=== PATIENT | female | born 1940 | race Caucasian/White ===

== ENCOUNTER → 2016-05-15 | Outpatient (CLI) | payer BC ==
[~2016-05-15] MED LIST: ASPI81TA21 PO; ATOR-22 PO; BUPR-79 PO; CHOL100010 PO; CYAN10005 PO; FERR325T5 PO; GDN80 PO; HYDR25TA5 PO; HYDR500C3 PO; IMD/2 PO; LISI40TA PO; LVNIS40 SQ; METO50TA16 PO; MISCCAP80 PO; MULT-506 PO; OLAN-111 PO; OXYC5TAB PO; ULT50X PO; [UNRECOGNIZED DRUG - OTHER] MS
[2016-05-15 09:40] LABS: BASO % 0.3 %; BASO ABS # 0.02 K/uL (0-0.2); HEMATOCRIT 37.7 % (37-47); IG% 0.3 %; LYMPH % 47.8 %; MEAN CELL VOLUME 116.7 fL (80-100); MEAN CORPUSCULAR HEMOGLOBIN 40.6 pg (25-34); MEAN CORPUSCULAR HGB CONC 34.7 g/dl (32-36); MEAN PLATELET VOLUME 9.9 fL (7.4-10.4); MONO % 7.2 %; NEUT % 42.4 %; PLATELET COUNT 305 K/uL (130-400); RED BLOOD COUNT 3.23 M/uL (4.2-5.4); WHITE BLOOD COUNT 6.49 K/uL (4.8-10.8)
[2016-05-15 10:02] LABS: ALB/GLOB RATIO 1.2 (0.9-2); ALKALINE PHOSPHATASE 76 U/L (45-117); ALT/SGPT 38 U/L (12-78); AST/SGOT 51 U/L (15-37); BLOOD UREA NITROGEN 22 mg/dl (7-18); BUN/CREATININE RATIO 15.6 (10-20); CALCIUM 9.4 mg/dl (8.5-10.1); CARBON DIOXIDE 26 mmol/L (21-32); CHLORIDE 105 mmol/L (98-107); GLUCOSE 147 mg/dl (70-99); SODIUM 141 mmol/L (136-145)
[2016-05-15 10:13] LABS: COMPLETE YES; EOSINOPHIL % 1.8 %; GIANT PLATELETS 1+; LYMPH ABS # 0.97 K/uL (1.2-3.4); MYELOCYTE % 0.9 %; NEUTROPHILS % 53.9 %; POLYCHROMASIA 1+; VARIANT LYM ABS # 1.32 K/uL; VARIANT LYMPHOCYTE % 20.4 %
== END | disposition home or self-care (01) ==
LOC: C.LAB1850 08:32
PROVIDERS: ATTEND Internal Medicine Hematology & Oncology
DX: D47.1 Chronic myeloproliferative disease (principal)

== ENCOUNTER → 2016-08-28 | Outpatient (CLI) | payer BC ==
[2016-08-28 13:30] LABS: BASO % 0.3 %; BASO ABS # 0.02 K/uL (0-0.2); EOS % 2.6 %; HEMATOCRIT 38.8 % (37-47); IG% 0.3 %; LYMPH % 35.7 %; LYMPH ABS # 2.18 K/uL (1.2-3.4); MEAN CELL VOLUME 118.7 fL (80-100); MEAN CORPUSCULAR HEMOGLOBIN 40.1 pg (25-34); MEAN CORPUSCULAR HGB CONC 33.8 g/dl (32-36); MEAN PLATELET VOLUME 10.1 fL (7.4-10.4); MONO % 7.2 %; NEUT % 53.9 %; PLATELET COUNT 307 K/uL (130-400); RED BLOOD COUNT 3.27 M/uL (4.2-5.4)
[2016-08-28 13:44] LABS: ESTIMATED AVERAGE GLUCOSE 134 mg/dl; HA1C FLAG Normal (Normal)
[2016-08-28 14:06] LABS: ALB/GLOB RATIO 1.2 (0.9-2); ALKALINE PHOSPHATASE 71 U/L (45-117); ALT/SGPT 40 U/L (12-78); AST/SGOT 59 U/L (15-37); BLOOD UREA NITROGEN 17 mg/dl (7-18); BUN/CREATININE RATIO 13.1 (10-20); CALCIUM 9.5 mg/dl (8.5-10.1); CARBON DIOXIDE 26 mmol/L (21-32); CHLORIDE 109 mmol/L (98-107); CHOLESTEROL 110 mg/dl (0-200); CHOLESTEROL/HDL RATIO 2.4; GLUCOSE 160 mg/dl (70-99); HDL CHOLESTEROL 45 mg/dl; LDL CHOLESTEROL CALCULATED 14 mg/dl; POTASSIUM 4.4 mmol/L (3.5-5.1); SODIUM 142 mmol/L (136-145); TRIGLYCERIDES 257 mg/dl (0-150); VERY LOW DENSITY LIPOPROT CALC 51 mg/dl
[2016-08-28 14:14] LABS: COMPLETE YES
--- NOTE | 2016-09-01 10:12 | CODING QUERY MEDICAL NECESSITY ---
SUPPORTING DIAGNOSIS NEEDED Dr. Dunn, A supporting diagnosis is required for the test/procedure performed on this patient in order for us to be reimbursed by the patient's insurance. Please provide a supporting diagnosis for the following test/procedure listed below next to the test name along with your signature. *If there is no additional diagnosis for this patient that would support the following test/procedure please document that below next to the test/procedure. Test(s)/Procedure(s) that require a supporting diagnosis: * ([id number]) VITAMIN D ASSAY DIAGNOSIS: * ([id number]) B12 VITAMIN LEVEL DIAGNOSIS: * [id number] GLYCATED HEMOGLOBIN DIAGNOSIS: DATE OF SERVICE: 08/28/16 Provider Signature: Date: Thank you Narendra Torres [facility] Information Management Once completed, please kindly fax back to [phone] For questions please call [phone]
== END | disposition home or self-care (01) ==
LOC: C.LABBC 10:13
PROVIDERS: ATTEND Internal Medicine
DX: D47.1 Chronic myeloproliferative disease (principal); N20.0 Calculus of kidney; D47.3 Essential (hemorrhagic) thrombocythemia; E11.9 Type 2 diabetes mellitus without complications

== ENCOUNTER → 2016-09-12 | Outpatient (CLI) | payer BC ==
[2016-09-12 15:04] LABS: CALCIUM 9.7 mg/dl (8.5-10.1)
[2016-09-12 15:07] LABS: BLOOD UREA NITROGEN 18 mg/dl (7-18); BUN/CREATININE RATIO 14.2 (10-20); CARBON DIOXIDE 27 mmol/L (21-32); CHLORIDE 103 mmol/L (98-107); GLUCOSE 151 mg/dl (70-99); POTASSIUM 4.7 mmol/L (3.5-5.1); SODIUM 139 mmol/L (136-145)
== END | disposition home or self-care (01) ==
LOC: C.LAB1850 13:50
PROVIDERS: ATTEND Internal Medicine
DX: Z00.00 Encounter for general adult medical examination without abnormal findings (principal)

== ENCOUNTER → 2016-09-26 | Outpatient (CLI) | payer BC ==
--- NOTE | 2016-09-26 13:27 | MAMMOGRAPHY REPORT ---
BILATERAL DIGITAL SCREENING MAMMOGRAM WITH CAD: 09/26/2016 CLINICAL HISTORY: Routine screening. Patient has no complaints. TECHNIQUE: Current study was also evaluated with a Computer Aided Detection (CAD) system. Bilateral CC and MLO views were obtained. COMPARISON: Comparison is made to exams dated: 09/25/2015 mammogram, 07/28/2014 mammogram, 07/27/2013 m ammogram, 07/26/2012 mammogram, 07/24/2011 mammogram, and 07/22/2010 mammogram - [facility] enter. BREAST COMPOSITION: There are scattered areas of fibroglandular density in both breasts. FINDINGS: No suspicious masses, calcifications, or areas of architectural distortion are noted in ei ther breast. There has been no significant interval change compared to prior exams. Scattered bilater al benign-appearing calcifications are not significantly changed. IMPRESSION: ACR BI-RADS CATEGORY 2: BENIGN There is no mammographic evidence of malignancy. A 1 year screening mammogram is recommended. The pa tient will receive written notification of the results. Approximately 10% of breast cancers are not detected with mammography. A negative mammographic report should not delay biopsy if a clinically suggestive mass is present. Nargis Gómez M.D. /:09/26/2016 11:22:07 Power Tool Repairer: Christy HERNANDEZ(Marjan)(Bell)([place]), [facility] letter sent: Normal 1/2 BI-RADS Code: ACR BI-RADS Category 2: Benign
== END | disposition home or self-care (01) ==
LOC: C.MAMM 10:38
PROVIDERS: ATTEND Internal Medicine
DX: Z12.31 Encounter for screening mammogram for malignant neoplasm of breast (principal)

== ENCOUNTER → 2016-11-12 | Outpatient (CLI) | payer BC ==
[2016-11-12 10:59] LABS: BASO % 0.3 %; BASO ABS # 0.02 K/uL (0-0.2); EOS % 2.5 %; HEMATOCRIT 39.2 % (37-47); IG% 0.5 %; LYMPH % 41.1 %; LYMPH ABS # 2.63 K/uL (1.2-3.4); MEAN CELL VOLUME 117.7 fL (80-100); MEAN CORPUSCULAR HEMOGLOBIN 40.5 pg (25-34); MEAN CORPUSCULAR HGB CONC 34.4 g/dl (32-36); MEAN PLATELET VOLUME 9.8 fL (7.4-10.4); MONO % 8.9 %; NEUT % 46.7 %; PLATELET COUNT 309 K/uL (130-400); RED BLOOD COUNT 3.33 M/uL (4.2-5.4)
[2016-11-12 11:09] LABS: ALT/SGPT 43 U/L (12-78); AST/SGOT 63 U/L (15-37); BLOOD UREA NITROGEN 18 mg/dl (7-18); BUN/CREATININE RATIO 15.2 (10-20); CALCIUM 9.6 mg/dl (8.5-10.1); CARBON DIOXIDE 30 mmol/L (21-32); CHLORIDE 107 mmol/L (98-107); GLUCOSE 156 mg/dl (70-99); POTASSIUM 4.4 mmol/L (3.5-5.1); SODIUM 139 mmol/L (136-145)
[2016-11-12 11:12] LABS: ALB/GLOB RATIO 1.2 (0.9-2); ALKALINE PHOSPHATASE 80 U/L (45-117)
[2016-11-12 11:19] LABS: COMPLETE YES
== END | disposition home or self-care (01) ==
LOC: C.LAB1850 09:27
PROVIDERS: ATTEND Internal Medicine Hematology & Oncology
DX: D47.1 Chronic myeloproliferative disease (principal)

== ENCOUNTER → 2017-05-14 | Outpatient (CLI) | payer BC ==
[2017-05-14 12:13] LABS: BASO % 0.3 %; BASO ABS # 0.02 K/uL (0-0.2); EOS % 2.1 %; EOS ABS # 0.13 K/uL (0-0.5); HEMATOCRIT 40.1 % (37-47); HEMOGLOBIN 13.7 g/dL (12.0-16.0); IG# 0.02 K/uL (0.00-0.02); LYMPH % 34.2 %; LYMPH ABS # 2.14 K/uL (1.2-3.4); MEAN CELL VOLUME 117.3 fL (80-100); MEAN CORPUSCULAR HEMOGLOBIN 40.1 pg (25-34); MEAN CORPUSCULAR HGB CONC 34.2 g/dl (32-36); MEAN PLATELET VOLUME 10.1 fL (7.4-10.4); NEUT % 55.1 %; NEUT ABS # 3.45 K/uL (1.4-6.5); PLATELET COUNT 303 K/uL (130-400); RED CELL DISTRIBUTION WIDTH CV 12.9 % (11.5-14.5); RED CELL DISTRIBUTION WIDTH SD 55.2 fL (36.4-46.3); WHITE BLOOD COUNT 6.26 K/uL (4.8-10.8)
[2017-05-14 12:40] LABS: ALBUMIN 3.9 gm/dl (3.4-5.0); ALT/SGPT 50 U/L (12-78); AST/SGOT 66 U/L (15-37); BLOOD UREA NITROGEN 17 mg/dl (7-18); CALCIUM 9.7 mg/dl (8.5-10.1); CARBON DIOXIDE 26 mmol/L (21-32); GLUCOSE 170 mg/dl (70-99); POTASSIUM 4.4 mmol/L (3.5-5.1); SODIUM 136 mmol/L (136-145)
[2017-05-14 12:43] LABS: ALKALINE PHOSPHATASE 76 U/L (45-117); TOTAL PROTEIN 7.4 gm/dl (6.4-8.2)
== END | disposition home or self-care (01) ==
LOC: C.LAB1850 10:35
PROVIDERS: ATTEND Internal Medicine Hematology & Oncology
DX: D47.3 Essential (hemorrhagic) thrombocythemia (principal)

== ENCOUNTER → 2017-11-04 | Outpatient (CLI) | payer BC ==
[~2017-11-04] MED LIST changes: +ASPI-319 PO; -ASPI81TA21 PO
[2017-11-04 14:35] LABS: BASO % 0.4 %; BASO ABS # 0.02 K/uL (0-0.2); EOS % 1.6 %; EOS ABS # 0.08 K/uL (0-0.5); HEMATOCRIT 38.8 % (37-47); HEMOGLOBIN 13.4 g/dL (12.0-16.0); IG# 0.01 K/uL (0.00-0.02); LYMPH % 38.7 %; LYMPH ABS # 1.98 K/uL (1.2-3.4); MEAN CELL VOLUME 114.8 fL (80-100); MEAN CORPUSCULAR HEMOGLOBIN 39.6 pg (25-34); MEAN CORPUSCULAR HGB CONC 34.5 g/dl (32-36); MEAN PLATELET VOLUME 10.3 fL (7.4-10.4); MONO % 10.7 %; MONO ABS # 0.55 K/uL (0.11-0.59); NEUT % 48.4 %; NEUT ABS # 2.48 K/uL (1.4-6.5); PLATELET COUNT 294 K/uL (130-400); RED CELL DISTRIBUTION WIDTH CV 12.9 % (11.5-14.5); WHITE BLOOD COUNT 5.12 K/uL (4.8-10.8)
[2017-11-04 14:52] LABS: ALBUMIN 3.7 gm/dl (3.4-5.0); ALKALINE PHOSPHATASE 80 U/L (45-117); ALT/SGPT 47 U/L (12-78); AST/SGOT 78 U/L (15-37); BLOOD UREA NITROGEN 18 mg/dl (7-18); CALCIUM 9.6 mg/dl (8.5-10.1); CARBON DIOXIDE 25 mmol/L (21-32); CREATININE 1.23 mg/dl (0.60-1.20); GLUCOSE 216 mg/dl (70-99); POTASSIUM 4.2 mmol/L (3.5-5.1); SODIUM 138 mmol/L (136-145); TOTAL PROTEIN 7.1 gm/dl (6.4-8.2)
== END | disposition home or self-care (01) ==
LOC: C.LAB1850 12:50
PROVIDERS: ATTEND Internal Medicine Hematology & Oncology
DX: D47.3 Essential (hemorrhagic) thrombocythemia (principal)

== ENCOUNTER 2019-06-06 20:58 | Inpatient (IN) ==
[2019-06-06 21:40] LABS: Basophils # (auto) 0.01 K/uL (0-0.2); Basophils % (auto) 0.1 %; Eosinophils # (auto) 0.06 K/uL (0-0.5); Eosinophils % (auto) 0.8 %; Hematocrit (blood only) 37.1 % (37-47); Hemoglobin 12.6 g/dL (12.0-16.0); Immature Granulocytes # (auto) 0.03 K/uL (0.00-0.02); Immature Granulocytes % (auto) 0.4 %; Lymphocytes # (auto) 1.45 K/uL (1.2-3.4); Mean Corpuscular Hemoglobin 42.1 pg (25-34); Mean Corpuscular Volume 124.1 fL (80-100); Mean Platelet Volume 10.9 fL (7.4-10.4); Monocytes % (auto) 6.6 %; Neutrophils # (auto) 5.57 K/uL (1.4-6.5); Neutrophils % (auto) 73.1 %; Platelet Count 287 K/uL (130-400); RDW Coefficient of Variation 13.9 % (11.5-14.5); RDW Standard Deviation 62.2 fL (36.4-46.3); Red Blood Count 2.99 M/uL (4.2-5.4); White Blood Count 7.62 K/uL (4.8-10.8)
[2019-06-06 21:50] LABS: INR 1.1 (0.9-1.1); Prothrombin Time 11.3 Seconds (9.0-12.0)
[2019-06-06 21:56] LABS: Alanine Aminotransferase 48 U/L (12-78); Albumin Level 3.5 gm/dl (3.4-5.0); Aspartate Aminotransferase 70 U/L (15-37); BUN Creatinine Ratio 16.9 (10-20); Blood Urea Nitrogen 35 mg/dl (7-18); Calcium 9.9 mg/dl (8.5-10.1); Carbon Dioxide 20 mmol/L (21-32); Chloride 106 mmol/L (98-107); Est GFR (African American) 26.6; Est GFR (Non-African American) 22.9; Glucose 214 mg/dl (70-99); Potassium 4.9 mmol/L (3.5-5.1); Sodium 137 mmol/L (136-145)
[2019-06-06 22:06] LABS: Alkaline Phosphatase 85 U/L (45-117); Bilirubin,Total 0.5 mg/dl (0.2-1); Globulin 3.5 gm/dl (2.5-4.0); Troponin I 0.016 ng/ml (0-0.045)
--- NOTE | 2019-06-06 22:06 | XRay Report ---
XR chest 1V portable CLINICAL HISTORY: syncope COMPARISON STUDY: Chest radiograph October 26, 2013. FINDINGS: Lung volumes are normal. There is no pneumothorax or pleural effusion. There is no consolid ation or evidence for pulmonary edema. Apparent left basilar opacity is likely artifactual. Moderate cardiomegaly is noted. IMPRESSION: Moderate cardiomegaly. No acute findings. ACT 112: Negative or not required by law. Electronically signed by: Fransisco Rdz M.D. 06/06/2019 10:05 PM
[2019-06-06 22:19] LABS: T4 Free Thyroxine 1.11 ng/dl (0.8-1.6)
[2019-06-06 22:32] LABS: Macrocytosis Present
--- NOTE | 2019-06-06 23:39 | Emergency Department Note ---
Entered by Catina Burns acting as a scribe for History of Present Illness General Chief complaint: Syncope (Near Syncope) Stated complaint: FALL, DIZZINESS, MILD SOB Source: patient and family () History of Present Illness Onset (ago): hour(s) (just prior to arrival) Location: head (general) Pain Consistency: + other (episode) Quality: + other (syncope ) Associated symptoms: + cough, + shortness of breath and + other (positive dizzin ess); no nausea/vomiting The patient is a 79 year old female who presents to the Emergency Room with complaints of an episode of syncope that occurred just prior to arrival. The patient states that she was getting out of the shower when she bent over to get something and this episode occurred. The patient states that she has had several weeks of dizziness. She reports having shortness of breath recently. The patient denies nausea and vomiting. The patient's reports that the patient has had a persistent cough over the past month when sleeping. Per the patient's , the patient has not quite met the criteria for a pacemaker several times. She reports a history of cardiomyopathy. Home Medications Home Medications Medication Instructions Recorded Confirmed Type Saccharomyces boulardii 250 mg 250 mg PO BID #60 cap 09/23/18 06/06/19 Rx capsule prazosin 1 mg capsule 1 mg PO QPM #30 cap 09/23/18 06/06/19 Rx bupropion HCl 150 mg tablet,12 hr 150 mg PO BID ea 01/03/19 06/06/19 History sustained-release trazodone 50 mg tablet 50 mg PO HS #30 tab 01/03/19 06/06/19 History Centrum Silver Women 1 tab PO QAM 05/03/19 06/06/19 History aspirin 81 mg PO QAM 05/03/19 06/06/19 History cholecalciferol (vitamin D3) 1,000 units PO QAM 05/03/19 06/06/19 History ferrous sulfate [Feosol] 325 mg PO QPM 05/03/19 06/06/19 History hydroxyurea 1,000 mg PO [id number] 05/03/19 06/06/19 History lisinopril 40 mg PO QAM 05/03/19 06/06/19 History metformin 500 mg PO QPM 05/03/19 06/06/19 History metoprolol succinate 150 mg PO DAILY 05/03/19 06/06/19 History vitamin [id number] acid 1 tab PO QAM 05/03/19 06/06/19 History atorvastatin 20 mg tablet 20 mg PO QPM #90 tab 06/01/19 06/06/19 Rx hydroxyurea 1,500 mg PO WK 06/06/19 06/06/19 History olanzapine 10 mg PO DAILY 06/06/19 06/06/19 History Allergies Allergy/AdvReac Type Severity Reaction Status Date / Time No Known Allergies Allergy Verified 05/11/19 08:49 Past Med/Surg History Medical History Alcohol abuse, 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) QUIT DRINKING APPROX 10 YEARS AGO CKD (chronic kidney disease), stage III (Chronic) PCP MONITORS Depression Diabetes mellitus, type 2 NIDDM Diarrhea GERD (gastroesophageal reflux disease) History of gastric ulcer History of GI bleed History of nephrolithiasis Hyperlipidemia Hypertension (Chronic) Mild CAD FOLLOWS W/ [place] [facility] Nonischemic cardiomyopathy (Chronic) 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) Osteoarthritis Poor historian Primary thrombocytopenia, unspecified (Chronic 02/27/11) Sacroiliac dysfunction Sleep apnea CPAP Surgical History History of Achilles tendon repair LEFT History of cardiac cath 2014 - [place] - NO STENTS History of colonoscopy with polypectomy History of cystoscopy History of esophagogastroduodenoscopy (EGD) History of hysterectomy with bilateral oophorectomy History of inguinal hernia repair RIGHT History of knee surgery LEFT History of tonsillectomy Family History Brother Colorectal cancer Other Bladder cancer Diabetes Hypertension Lymphoma Nephrolithiasis Social History Preferred Language: Mauritian Communication Ability: Effective Visual Impairment: No Limitations Hearing Ability: Normal Mushroom Growing Supervisor Required: No Beliefs That Will Affect Care: None marital status: Current Living Situation: Spouse current occupational status: retired Other Information That Helps Us Care for You: No Feels Safe at Home: Yes Safety Concerns: Feels Safe At This Time Smoking Status: Unknown if ever smoked Hx Alcohol Use: No Hx Substance Use: No Childhood Exposure to Second-Hand Smoke: Yes caffeine: Yes Dental Care, Regularly: Yes Physical Activity Frequency: Does not Exercise Seatbelt Use: always Sunscreen Use: No Review of Systems See HPI for pertinent positives & negatives. and A total of 10 systems reviewed and were otherwise negative Physical Exam Vital Signs Vital Signs - 24 hr 06/06/19 21:15 06/06/19 21:34 06/06/19 21:57 Temperature 37.1 C Temperature Source Oral Pulse Rate 27 L Pulse Rate [Apical] 31 L Pulse Rhythm Irregular Pulse Rhythm [Apical] Respiratory Rate 17 18 Respiratory Effort / Characteristics Non-Labored Spontaneous Non-Labored Spontaneous Respiratory Depth Normal Normal Blood Pressure 170/72 H Blood Pressure [Left Arm] 172/82 H Blood Pressure Mean 104 Blood Pressure Mean [Left Arm] 112 Blood Pressure Position Lying Blood Pressure Position [Left Arm] Lying Pulse Oximetry 94 94 96 Oxygen Delivery Method Room Air Room Air Room Air Sepsis Recent Fever Within 48 Hours No Sepsis Action Taken by Nursing No Action Required 06/06/19 22:42 Temperature Temperature Source Pulse Rate Pulse Rate [Apical] 35 L Pulse Rhythm Pulse Rhythm [Apical] Irregular Respiratory Rate 20 Respiratory Effort / Characteristics Non-Labored Spontaneous Respiratory Depth Normal Blood Pressure Blood Pressure [Left Arm] 164/82 H Blood Pressure Mean Blood Pressure Mean [Left Arm] 109 Blood Pressure Position Blood Pressure Position [Left Arm] Lying Pulse Oximetry 96 Oxygen Delivery Method Room Air Sepsis Recent Fever Within 48 Hours Sepsis Action Taken by Nursing Vital signs reviewed. General: Chronically ill-appearing 79 year old female, in no significant distress. Alopecia. HEENT: No scleral icterus, PERRLA, neck supple. Atraumatic. Cardiovascular: Marked bradycardia and irregular rhythm, no extra sounds. Pulmonary: Clear to auscultation bilaterally, normal work of breathing. Abdomen: Obese abdomen. Soft, nontender, nondistended, positive bowel sounds. Musculoskeletal: Atraumatic. Neurologic: Patient awake alert and oriented x 3 Skin: Warm, dry, no rash. Some chronic erythema of the bilateral lower extremities with minimal edema. Course Course 2115: Past medical records reviewed. The patient was evaluated in room B7. A complete history and physical exam was performed. 2132: I discussed the case with Dr. Escoto-Cardiology who states that as long as the patient is stable, he will put a pacemaker in in the morning. He states that the external pads should be kept on the patient. 2228: I [facility] for further evaluation. Administered Medications Acetaminophen (Tylenol) 650 mg PO Q4H PRN PRN Reason: Pain or Fever Stop: 07/07/19 00:25 Last Admin: 06/08/19 03:01 Dose: 650 mg Documented by: [id number] Cefazolin Sodium (Ancef 2000mg) 2,000 mg in 15 mls @ 3.75 mls/min IV Q8H [facility]; Protocol Stop: 06/08/19 22:59 Last Admin: 06/08/19 07:58 Dose: 3.75 mls/min Documented by: [id number] Admin: 06/07/19 22:58 Dose: 3.75 mls/min Documented by: [id number] Nicardipine HCl 25 mg/ Sodium (Chloride) 250 mls @ 0 mls/hr IV .Q0M TABATHA; Protocol Stop: 07/08/19 05:29 Last Admin: 06/08/19 13:29 Dose: Not Given Documented by: [id number] Titration: 06/08/19 13:00 Dose: 0 mg/hr, 0 mls/hr Documented by: [id number] Admin: 06/08/19 11:43 Dose: Not Given Documented by: [id number] Titration: 06/08/19 11:35 Dose: 2.5 mg/hr, 25 mls/hr Documented by: [id number] Titration: 06/08/19 11:14 Dose: 5 mg/hr, 50 mls/hr Documented by: [id number] Admin: 06/08/19 09:04 Dose: 7.5 mg/hr, 75 mls/hr Documented by: [id number] Cosigned by: [id number] Titration: 06/08/19 09:04 Dose: 7.5 mg/hr, 75 mls/hr Documented by: [id number] Cosigned by: [id number] Titration: 06/08/19 07:11 Dose: 7.5 mg/hr, 75 mls/hr Documented by: [id number] Cosigned by: [id number] Titration: 06/08/19 06:40 Dose: 7.5 mg/hr, 75 mls/hr Documented by: [id number] Admin: 06/08/19 05:47 Dose: 5 mg/hr, 50 mls/hr Documented by: [id number] Cosigned by: [id number] Insulin Aspart (Novolog Flexpen) 0 units SC ACHS [facility] Stop: 07/07/19 20:59 Last Admin: 06/08/19 11:15 Dose: 8 units Documented by: [id number] Cosigned by: [id number] Admin: 06/08/19 07:54 Dose: 6 units Documented by: [id number] Cosigned by: [id number] Admin: 06/07/19 21:47 Dose: Not Given Documented by: [id number] Cosigned by: [id number] Metoprolol Tartrate (Lopressor) 150 mg PO BID [facility] Stop: 07/08/19 10:29 Last Admin: 06/08/19 11:13 Dose: 150 mg Documented by: [id number] Olanzapine (Zyprexa) 10 mg PO QAM [facility] Stop: 07/08/19 10:29 Last Admin: 06/08/19 11:13 Dose: 10 mg Documented by: [id number] Discontinued Medications Bacitracin (Bacitracin) Confirm Administered Dose 50,000 units .ROUTE .STK-MED ONE Stop: 06/07/19 14:49 Last Admin: 06/07/19 16:09 Dose: 50,000 units Documented by: [id number] Bupivacaine HCl (Marcaine 0.5% Pf) Confirm Administered Dose 20 ml .ROUTE .STK- MED ONE Stop: 06/07/19 14:49 Last Admin: 06/07/19 16:09 Dose: 20 ml Documented by: [id number] Cefazolin Sodium (Ancef) Confirm Administered Dose 2,000 mg .ROUTE .STK-MED ONE Stop: 06/07/19 14:40 Last Admin: 06/07/19 16:08 Dose: 2,000 mg Documented by: [id number] Fentanyl Citrate (Fentanyl Citrate) Confirm Administered Dose 100 mcg .ROUTE .STK-MED ONE Stop: 06/07/19 14:39 Last Admin: 06/07/19 16:48 Dose: 75 mcg Documented by: [id number] Heparin Sodium (Porcine) (Heparin Sodium (Porcine)) 5,000 units SQ Q12 [facility] Stop: 07/07/19 08:59 Last Admin: 06/07/19 10:15 Dose: Not Given Documented by: [id number] Heparin Sodium/Sodium Chloride (Heparin/Nss 1000 Unit/500ml Flush Bag) Confirm Administered Dose 3,000 units IV .STK-MED ONE Stop: 06/07/19 14:39 Last Admin: 06/07/19 16:08 Dose: 3,000 units Documented by: [id number] Hydralazine HCl (Hydralazine Hcl) 10 mg IV NOW STA Stop: 06/07/19 17:42 Last Admin: 06/07/19 17:49 Dose: 10 mg Documented by: [id number] Hydralazine HCl (Hydralazine Hcl) 5 mg IV NOW ONE Stop: 06/07/19 19:25 Last Admin: 06/07/19 19:29 Dose: 5 mg Documented by: [id number] Sodium Chloride (Nss 1000ml) 1,000 mls @ 100 mls/hr IV .Q10H [facility] Stop: 07/07/19 00:25 Last Infusion: 06/07/19 14:15 Dose: 0 mls/hr Documented by: [id number] Admin: 06/07/19 10:16 Dose: 100 mls/hr Documented by: [id number] Infusion: 06/07/19 10:00 Dose: 100 mls/hr Documented by: [id number] Admin: 06/07/19 00:40 Dose: 100 mls/hr Documented by: [id number] Labetalol HCl 300 mg/ Dextrose 300 mls @ 90 mls/hr IV .Q3H20M ONE; Protocol Stop: 06/08/19 06:49 Last Titration: 06/08/19 05:50 Dose: 0 mg/min, 0 mls/hr Documented by: [id number] Titration: 06/08/19 05:17 Dose: 2 mg/min, 120 mls/hr Documented by: [id number] Titration: 06/08/19 04:47 Dose: 1.5 mg/min, 90 mls/hr Documented by: [id number] Admin: 06/08/19 04:09 Dose: 1 mg/min, 60 mls/hr Documented by: [id number] Cosigned by: [id number] Insulin Aspart (Novolog Flexpen) 0 units SC Q6 [facility] Stop: 07/07/19 00:59 Last Admin: 06/07/19 17:41 Dose: 4 units Documented by: [id number] Cosigned by: [id number] Admin: 06/07/19 11:52 Dose: 1 units Documented by: [id number] Cosigned by: [id number] Admin: 06/07/19 06:06 Dose: Not Given Documented by: [id number] Cosigned by: [id number] Admin: 06/07/19 00:45 Dose: Not Given Documented by: [id number] Cosigned by: [id number] Labetalol HCl (Normodyne) 20 mg IV NOW STA Stop: 06/07/19 21:12 Last Admin: 06/08/19 04:55 Dose: Not Given Documented by: [id number] Labetalol HCl (Normodyne) 10 mg IV NOW STA Stop: 06/07/19 21:12 Last Admin: 06/07/19 21:53 Dose: 10 mg Documented by: [id number] Cosigned by: [id number] Labetalol HCl (Normodyne) 20 mg IV NOW STA Stop: 06/07/19 22:41 Last Admin: 06/07/19 22:58 Dose: 20 mg Documented by: [id number] Cosigned by: [id number] Labetalol HCl (Normodyne) 20 mg IV NOW STA Stop: 06/07/19 23:26 Last Admin: 06/07/19 23:41 Dose: 20 mg Documented by: [id number] Cosigned by: [id number] Labetalol HCl (Normodyne) 20 mg IV NOW STA Stop: 06/08/19 00:20 Last Admin: 06/08/19 00:37 Dose: 20 mg Documented by: [id number] Cosigned by: [id number] Labetalol HCl (Normodyne) 20 mg IV NOW STA Stop: 06/08/19 01:36 Last Admin: 06/08/19 01:46 Dose: 20 mg Documented by: [id number] Cosigned by: [id number] Lidocaine HCl (Xylocaine 1% (Local)) Confirm Administered Dose 20 ml .ROUTE .STK-MED ONE Stop: 06/07/19 14:49 Last Admin: 06/07/19 16:09 Dose: 20 ml Documented by: [id number] Lidocaine HCl (Xylocaine 1% (Local)) Confirm Administered Dose 20 ml .ROUTE .STK-MED ONE Stop: 06/07/19 15:32 Last Admin: 06/07/19 16:09 Dose: 20 ml Documented by: [id number] Lisinopril (Zestril) 40 mg PO NOW STA Stop: 06/08/19 10:22 Last Admin: 06/08/19 11:13 Dose: 40 mg Documented by: [id number] Midazolam HCl (Versed) Confirm Administered Dose 5 mg .ROUTE .RECCY-MED ONE Stop: 06/07/19 14:39 Last Admin: 06/07/19 16:48 Dose: 3 mg Documented by: [id number] Critical Care Time Critical Care Time: Yes Total Critical Care Time: 31 I have personally spent 31 minutes of critical care time in the direct management of this patient. This includes bedside care, interpretation of diagnostic studies, and testing, discussion with consultants, patient, and family members, and other required patient management activities. This 31 minutes is in excess of all separately billable procedures. Medical Decision Making Differential Diagnosis Differential diagnosis includes etiologies such as vasovagal event, infection, h ypoglycemia, electrolyte abnormalities, cardiac sources, intracerebral event, toxicologic, neurologic, as well as others were entertained. Medical Records Attestation: I reviewed the patient's medical records. Home Medications Current Medication List: was personally reviewed by me Laboratory Data Attestation: I reviewed the patient's lab results. Result diagrams: 06/08/19 04:30 06/08/19 04:30 Lab Results 06/06/19 06/06/19 06/06/19 Range/Units 20:42 20:42 20:42 WBC 7.62 (4.8-10.8) K/uL RBC 2.99 L (4.2-5.4) M/uL Hgb 12.6 (12.0-16.0) g/dL Hct 37.1 (37-47) % MCV 124.1 H (80-100) fL MCH 42.1 H (25-34) pg MCHC 34.0 (32-36) g/dL RDW Std Deviation 62.2 H (36.4-46.3) fL RDW Coeff of Iram 13.9 (11.5-14.5) % Plt Count 287 (130-400) K/uL MPV 10.9 H (7.4-10.4) fL Immature Gran % (Auto) 0.4 % Neut % (Auto) 73.1 % Lymph % (Auto) 19.0 % [place] % (Auto) 6.6 % Eos % (Auto) 0.8 % Baso % (Auto) 0.1 % Immature Gran # (Auto) 0.03 H (0.00-0.02) K/uL Neut # (Auto) 5.57 (1.4-6.5) K/uL Lymph # (Auto) 1.45 (1.2-3.4) K/uL [place] # (Auto) 0.50 (0.11-0.59) K/uL Eos # (Auto) 0.06 (0-0.5) K/uL Baso # (Auto) 0.01 (0-0.2) K/uL Macrocytosis Present PT 11.3 (9.0-12.0) Seconds INR 1.1 (0.9-1.1) Sodium 137 (136-145) mmol/L Potassium 4.9 (3.5-5.1) mmol/L Chloride 106 (98-107) mmol/L Carbon Dioxide 20 L (21-32) mmol/L Anion Gap 11.0 (3-11) BUN 35 H (7-18) mg/dl Creatinine 2.04 H (0.6-1.2) mg/dl Est Cr Clr Drug Dosing Not Reportable Est GFR ( Amer) 26.6 Est GFR (Non-Af Amer) 22.9 BUN/Creatinine Ratio 16.9 (10-20) Glucose 214 H (70-99) mg/dl Calcium 9.9 (8.5-10.1) mg/dl Magnesium 2.0 (1.8-2.4) mg/dl Total Bilirubin 0.5 (0.2-1) mg/dl AST 70 H (15-37) U/L ALT 48 (12-78) U/L Alkaline Phosphatase 85 (45-117) U/L Troponin I 0.016 (0-0.045) ng/ml Total Protein 7.0 (6.4-8.2) gm/dl Albumin 3.5 (3.4-5.0) gm/dl Globulin 3.5 (2.5-4.0) gm/dl Albumin/Globulin Ratio 1.0 (0.9-2) TSH 4.610 H (0.300-4.500) uIu/ml Free T4 1.11 (0.8-1.6) ng/dl Imaging Data Radiologist's Impression: Radiology results as stated below per my review and the radiologist's interpretation: XR chest 1V portable CLINICAL HISTORY: syncope COMPARISON STUDY: Chest radiograph October 26, 2013. FINDINGS: Lung volumes are normal. There is no pneumothorax or pleural effusion. There is no consolidation or evidence for pulmonary edema. Apparent left basilar opacity is likely artifactual. Moderate cardiomegaly is noted. IMPRESSION: Moderate cardiomegaly. No acute findings. ACT 112: Negative or not required by law. Electronically signed by: Fransisco Rdz M.D. 06/06/2019 10:05 PM ECG Data Attestation: I personally reviewed and interpreted this ECG as follows: Indication: + syncope Rate (beats per minute): 27 Rhythm: + other (complete heart block ) ECG Intervals/blocks: + Complete heart block ECG ST segments: + T-wave inversions; no ST depression and no ST elevation ECG Findings: + Other (nonspecific intraventricular conduction delay) Additional Comments: An order for cardiac monitoring was placed, the patient is found to be in a complete heart block at approximately 27 bpm Blood Pressure Blood Pressure Findings: Elevated blood pressure Blood Pressure Disposition: further management by hospitalist MDM Narrative This patient was evaluated and appeared to be in no significant distress. Physical examination reveals some chronic debilitation however she is in no distress at this time. IV access was obtained and patient was placed on the playground monitor. She is found to be in a complete heart block. Laboratory work is fairly reassuring however the creatinine is 2.04. Troponin is 0.016. Gentle IV hydration was initiated and the patient was discussed with Dr. Escoto of cardiology. He has advised external pads in place if needed and they will consult for pacemaker placement first thing in the morning unless notified earlier. Dr. Brownlee was made aware of the patient and will evaluate for further management. Patient is aware of the plan and agrees. Impression & Plan Third degree heart block, Syncope Discharge Plan Visit Data *Final* Discharge Date/Time: 06/07/19 00:25 Chief Complaint: Syncope (Near Syncope) Stated Complaint: FALL, DIZZINESS, MILD SOB ED Provider: Aviva Wade Discharge Problem: Third degree heart block, Syncope Patient Disposition: Admitted As Inpatient Discharge Problem: Syncope Qualifiers: Syncope type: unspecified Qualified Code(s): R55 - Syncope and collapse The scribe's documentation has been prepared under my direction and personally reviewed by me in its entirety. I confirm that the note above accurately reflects all work, treatment, procedures, and medical decision making performed by me.
--- NOTE | 2019-06-06 23:56 | History & Physical Report ---
Date of Service June 06, 2019 Assessment & Plan (1) Third degree heart block: Third-degree heart block/mild CAD/hypertension/nonischemic cardiomyopathy- Rate is variable from 25-35, with systolic blood pressure maintained in the 160 range. The patient will be admitted to telemetry for serial cardiac enzymes, serial EKG's, cardiac rhythm monitoring and a 2-D echocardiogram with Dopplers. Patient has no further episodes of syncope or near syncope. Electrolytes are within normal range, however, creatinine is elevated, and patient was therefore received IV fluids. Continue lisinopril 40 mg every morning. Hold metoprolol succinate 150 mg p.o. daily. I did confirm with patient that she did not inadvertently take extra metoprolol. Consult cardiology for a.m. Present on Admission?: Yes (2) Syncope: Secondary to third-degree heart block. Patient reports that she has been having increased fatigue with less and less physical activity over the past weeks. Present on Admission?: Yes (3) Type 2 diabetes mellitus: Patient will be n.p.o. after midnight. Hold metformin. Placed on Accu-Cheks before meals and at bedtime/every 6 hours with NovoLog coverage. Present on Admission?: Yes (4) Hypertension: See above Present on Admission?: Yes (5) Nonischemic cardiomyopathy: Ordering a 2D echocardiogram with Dopplers for comparison. Present on Admission?: Yes (6) Nonocclusive coronary atherosclerosis of [place] coronary artery: See above Present on Admission?: Yes (7) Hyperlipidemia: Continue atorvastatin 20 mg every evening Present on Admission?: Yes (8) Acute kidney injury superimposed on chronic kidney disease: Creatinine was 2.04 upon admission, with baseline 1.09-1.52. We will rehydrate with normal saline, recheck laboratories in the a.m. Present on Admission?: Yes (9) Depression: Continue bupropion, olanzapine, prazosin and trazodone. These medications may cause orthostatic hypotension, but should not be associated with causing. Third-degree heart block Present on Admission?: Yes (10) Primary thrombocytopenia, unspecified: Continue hydroxyurea Present on Admission?: Yes History of Present Illness Chief Complaint: The patient presents to the emergency department after a near syncopal episode while at home prior to arrival. Primary Care Provider: Wayne Dunn MD The patient is a 79-year-old female with a past medical history including renal calculus, diabetes mellitus type 2, CKD stage III, hypertension, nonischemic cardiomyopathy, nonocclusive CAD and primary thrombocytopenia. She reports over the past several weeks she has had episodes where she has had to rest more frequently than usual with doing routine activities due to severe fatigue and shortness of breath. Today however she almost passed out doing routine activities, which prompted her visit to the emergency department today. In the emergency department, the patient was found to be in complete heart block, cardiology was consulted over the phone and because of stable blood pressures patient has been recommended for admission to the Hospitalist Service and will consult cardiology in a.m. for probable pacer. Allergies Allergy/AdvReac Type Severity Reaction Status Date / Time No Known Allergies Allergy Verified 05/11/19 08:49 Home Medications Home Medications Medication Instructions Recorded Confirmed Type Saccharomyces boulardii 250 mg 250 mg PO BID #60 cap 09/23/18 06/06/19 Rx capsule prazosin 1 mg capsule 1 mg PO QPM #30 cap 09/23/18 06/06/19 Rx bupropion HCl 150 mg tablet,12 hr 150 mg PO BID ea 01/03/19 06/06/19 History sustained-release trazodone 50 mg tablet 50 mg PO HS #30 tab 01/03/19 06/06/19 History Centrum Silver Women 1 tab PO QAM 05/03/19 06/06/19 History aspirin 81 mg PO QAM 05/03/19 06/06/19 History cholecalciferol (vitamin D3) 1,000 units PO QAM 05/03/19 06/06/19 History ferrous sulfate [Feosol] 325 mg PO QPM 05/03/19 06/06/19 History hydroxyurea 1,000 mg PO 6XWK 05/03/19 06/06/19 History lisinopril 40 mg PO QAM 05/03/19 06/06/19 History metformin 500 mg PO QPM 05/03/19 06/06/19 History metoprolol succinate 150 mg PO DAILY 05/03/19 06/06/19 History vitamin [id number] acid 1 tab PO QAM 05/03/19 06/06/19 History atorvastatin 20 mg tablet 20 mg PO QPM #90 tab 06/01/19 06/06/19 Rx hydroxyurea 1,500 mg PO WK 06/06/19 06/06/19 History olanzapine 10 mg PO DAILY 06/06/19 06/06/19 History Past Med/Surg History Medical History Alcohol abuse, 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) QUIT DRINKING APPROX 10 YEARS AGO CKD (chronic kidney disease), stage III (Chronic) PCP MONITORS Depression Diabetes mellitus, type 2 NIDDM Diarrhea GERD (gastroesophageal reflux disease) History of gastric ulcer History of GI bleed History of nephrolithiasis Hyperlipidemia Hypertension (Chronic) Mild CAD FOLLOWS W/ [facility] Nonischemic cardiomyopathy (Chronic) Nonocclusive coronary atherosclerosis of [place] coronary artery (Chronic) Osteoarthritis Poor historian Primary thrombocytopenia, unspecified (Chronic 02/27/11) Sacroiliac dysfunction Sleep apnea CPAP Surgical History History of Achilles tendon repair LEFT History of cardiac cath 2015 - [place] - NO STENTS History of colonoscopy with polypectomy History of cystoscopy History of esophagogastroduodenoscopy (EGD) History of hysterectomy with bilateral oophorectomy History of inguinal hernia repair RIGHT History of knee surgery LEFT History of tonsillectomy Family History Brother Colorectal cancer Other Bladder cancer Diabetes Hypertension Lymphoma Nephrolithiasis Social History Preferred Language: Dutch Communication Ability: Effective Visual Impairment: No Limitations Hearing Ability: Normal Door Cutter Required: No Beliefs That Will Affect Care: None marital status: Current Living Situation: Spouse current occupational status: retired Other Information That Helps Us Care for You: No Feels Safe at Home: Yes Safety Concerns: Feels Safe At This Time Smoking Status: Unknown if ever smoked Hx Alcohol Use: No Hx Substance Use: No Childhood Exposure to Second-Hand Smoke: Yes caffeine: Yes Dental Care, Regularly: Yes Physical Activity Frequency: Does not Exercise Seatbelt Use: always Sunscreen Use: No Review of Systems Review of Systems: The patient denies chest pain, palpitations, cough, lower extremity swelling, sore throat, fevers, chills, sweats, nausea, vomiting, diarrhea , constipation, abdominal pain, pelvic pain, blood in urine or stool, dysuria, urinary frequency or urgency, headache, rash, abnormal bruising or bleeding, imbalance, focal weakness, numbness or tingling in arms or legs, generalized art hralgias or myalgias, back or neck pain, or night sweats. The review of systems is otherwise negative other than for that already noted above, and at least 10 systems have been reviewed. Physical Exam Physical Exam: The patient is awake, alert and oriented 3, well developed and well nourished, normocephalic and atraumatic, lying in bed and in no acute distress. HEENT--PERRL, EOMI, mucous membranes and oropharynx dry. Neck--supple. No JVD. No bruits. Thyroid normal, trachea midline, no adenopathy. Heart-- bradycardia. No murmurs, rubs or gallops. Lungs--clear bilaterally, no respiratory distress, no accessory muscle use. Abdomen--normal bowel sounds and soft. Nontender. Nondistended. Obese Extremities--no cyanosis or clubbing. No edema. Dermatologic--normal skin turgor, normal color, no abnormal lymph nodes, no rash. Neurologic--cranial nerves II through XII grossly intact. Rheumatologic--normal range of motion. Psychiatric--normal affect. Results & Data Vital Signs (Past 12 Hours) Vital Signs Temp Pulse Pulse Resp BP BP Pulse Ox 06/06/19 23:45 36 L 20 190/88 H 96 06/06/19 22:42 35 L 20 164/82 H 96 06/06/19 21:57 31 L 18 172/82 H 96 06/06/19 21:34 94 06/06/19 21:15 98.8 F 27 L 17 170/72 H 94 Laboratory Results Laboratory Results WBC 7.62 K/uL (4.8-10.8) 06/06/19 20:42 RBC 2.99 M/uL (4.2-5.4) L 06/06/19 20:42 Hgb 12.6 g/dL (12.0-16.0) 06/06/19 20:42 Hct 37.1 % (37-47) 06/06/19 20:42 MCV 124.1 fL (80-100) H 06/06/19 20:42 MCH 42.1 pg (25-34) H 06/06/19 20:42 MCHC 34.0 g/dL (32-36) 06/06/19 20: RDW Std Deviation 62.2 fL (36.4-46.3) H 06/06/19 20: RDW Coeff of [place] 13.9 % (11.5-14.5) 06/06/19 20: Plt Count 287 K/uL (130-400) 06/06/19 20: MPV 10.9 fL (7.4-10.4) H 06/06/19 20:42 Immature Gran % (Auto) 0.4 % 06/06/19 20:42 Neut % (Auto) 73.1 % 06/06/19 20:42 Lymph % (Auto) 19.0 % 06/06/19 20: [place] % (Auto) 6.6 % 06/06/19 20: Eos % (Auto) 0.8 % 06/06/19 20:42 Baso % (Auto) 0.1 % 06/06/19 20: Immature Gran # (Auto) 0.03 K/uL (0.00-0.02) H 06/06/19 20: Neut # (Auto) 5.57 K/uL (1.4-6.5) 06/06/19 20:42 Lymph # (Auto) 1.45 K/uL (1.2-3.4) 06/06/19 20: [place] # (Auto) 0.50 K/uL (0.11-0.59) 06/06/19 20:42 Eos # (Auto) 0.06 K/uL (0-0.5) 06/06/19 20: Baso # (Auto) 0.01 K/uL (0-0.2) 06/06/19 20:42 Macrocytosis Present 06/06/19 20: PT 11.3 Seconds (9.0-12.0) 06/06/19 20: INR 1.1 (0.9-1.1) 06/06/19 20: Sodium 137 mmol/L (136-145) 06/06/19 20: Potassium 4.9 mmol/L (3.5-5.1) 06/06/19 20: Chloride 106 mmol/L (98-107) 06/06/19 20: Carbon Dioxide 20 mmol/L (21-32) L 06/06/19 20:42 Anion Gap 11.0 (3-11) 06/06/19 20:42 BUN 35 mg/dl (7-18) H 06/06/19 20:42 Creatinine 2.04 mg/dl (0.6-1.2) H 06/06/19 20:42 Est Cr Clr Drug Dosing Not Reportable 06/06/19 20:42 Est GFR ( Amer) 26.6 06/06/19 20:42 Est GFR (Non-Af Amer) 22.9 06/06/19 20:42 BUN/Creatinine Ratio 16.9 (10-20) 06/06/19 20:42 Glucose 214 mg/dl (70-99) H 06/06/19 20:42 POC Glucose 131 mg/dl (70-99) H 06/07/19 00:38 Calcium 9.9 mg/dl (8.5-10.1) 06/06/19 20:42 Magnesium 2.0 mg/dl (1.8-2.4) 06/06/19 20:42 Total Bilirubin 0.5 mg/dl (0.2-1) 06/06/19 20:42 AST 70 U/L (15-37) H 06/06/19 20:42 ALT 48 U/L (12-78) 06/06/19 20:42 Alkaline Phosphatase 85 U/L (45-117) 06/06/19 20:42 Troponin I 0.016 ng/ml (0-0.045) 06/06/19 20:42 Total Protein 7.0 gm/dl (6.4-8.2) 06/06/19 20:42 Albumin 3.5 gm/dl (3.4-5.0) 06/06/19 20:42 Globulin 3.5 gm/dl (2.5-4.0) 06/06/19 20:42 Albumin/Globulin Ratio 1.0 (0.9-2) 06/06/19 20:42 TSH 4.610 uIu/ml (0.300-4.500) H 06/06/19 20:42 Free T4 1.11 ng/dl (0.8-1.6) 06/06/19 20:42 Diagnostic Findings [facility] [place] [phone] XRay Report Patient: EKTA LOJA Date: 06/06/19 MR#: [id number]: Aviva MELENDEZ Acct ID:[id number]: Date: 1940[facility] Zip: [place] [id number] Age: 79Location: ED Sex: F Room/Bed: Att Phy:Diagnosis: FALL, DIZZINESS, MILD SOB Michelle Phy: Wayne Dunn MDService Date: 06/06/19 Fam Phy:Interpreting Phy: Fransisco Rdz MD Admit Phy: Ordering Phy: Aviva Wade M.D. cc: ~ XR chest 1V portable CLINICAL HISTORY: syncope COMPARISON STUDY: Chest radiograph October 26, 2013. FINDINGS: Lung volumes are normal. There is no pneumothorax or pleural effusion. There is no consolidation or evidence for pulmonary edema. Apparent left basilar opacity is likely artifactual. Moderate cardiomegaly is noted. IMPRESSION: Moderate cardiomegaly. No acute findings. ACT 112: Negative or not required by law. Electronically signed by: Fransisco Rdz M.D. 06/06/2019 10:05 PM Dictated: 06/06/192203 Transcribed: 06/06/192203 Code Status & VTE Plan Code Status Full code VTE Prophylaxis Plan VTE Prophylaxis will be ordered: Yes PG Care Time/CCT Total # of Minutes Spent Total Time Spent with Patient: Total time spent is greater than 50% in coordination of care (as documented) at patient's floor/unit and/or counseling patient: Coding Level of Care Code 91315 Initial Inpt Care Lvl 3 Diagnoses Third degree heart block I44.2 Syncope R55 Syncope type: unspecified Type 2 diabetes mellitus E11.9 Hypertension I10 Nonischemic cardiomyopathy I42.8 Nonocclusive coronary atherosclerosis of [place] coronary artery I25.10 Hyperlipidemia E78.5 Acute kidney injury superimposed on chronic kidney disease N17.9; N18.9 Depression F32.9 Primary thrombocytopenia, unspecified D69.49 (1) Syncope Syncope type: unspecified Qualified Code(s): R55 - Syncope and collapse
[2019-06-07] MEDS ORDERED: DEXTROSE 50% 50 ML SYRINGE IV PRN (00:26)
[2019-06-07] MEDS ORDERED: ACETAMINOPHEN 325 MG TAB PO PRN ×2 (00:26→16:47)
[2019-06-07] MEDS ORDERED: ONDANSETRON INJ 2 MG/ML 2 ML VIAL IV PRN (00:26)
[2019-06-07] MEDS ORDERED: CARBOHYDRATES FOR HYPOGLYCEMIA PO PRN (00:26)
[2019-06-07] MEDS ORDERED: GLUCAGON FOR INJ 1 MG VIAL SQ PRN (00:26)
[2019-06-07] MEDS ORDERED: GLUCOSE 10 TABS/TUBE PO PRN (00:26)
[2019-06-07] MEDS ORDERED: GLUCOSE 40% GEL 15 GM TUBE PO PRN (00:26)
[2019-06-07] MEDS: SODIUM CHLORIDE 0.9% 1000ML 1,000 ML IV SCH ×2 (00:40→10:16)
[2019-06-07] MEDS: INSULIN ASPART 100 UNITS/ML 3 ML PEN SC SCH ×5 (00:45→21:47)
[2019-06-07 03:13] LABS: Appearance Urine Clear (Clear); Bacteria Urine Automated Negative (Negative); Bilirubin Urine Negative (Negative); Blood Urine Trace (Negative); Color Urine Yellow; Epithelial Cell Urine Auto >30 /lpf (0-5); Glucose Urine UA Negative (Negative); Ketones Urine Negative (Negative); Leukocyte Esterase Urine Negative (Negative); Nitrite Urine Negative (Negative); Protein Urine 2+ (Negative); RBC Urine Automated 0-4 /hpf (0-4); Specific Gravity Urine 1.019 (1.000-1.030); Urobilinogen Urine Negative (Negative)
[2019-06-07] MEDS ORDERED: HEPARIN SOD 5,000 UNIT/0.5 ML VIAL SQ SCH (09:00)
--- NOTE | 2019-06-07 12:27 | Cardiology Consultation ---
Date of Consultation June 07, 2019 Assessment & Plan (1) Third degree heart block: Very likely the patient has suffered from an element of heart block for several weeks. Review her record suggests an element of bradycardia noted over the past month. Was no EKG available for review, but it is possible she had heart block at those times. She reports symptoms dating back at least 1 month. She also has medical therapy which would cause significant bradycardia and potentially heart block. However, her metoprolol is required for treatment of her nonischemic cardiomyopathy. She is known to have an element of conduction disease at baseline and I suspect what we are seeing is simply progression of her conduction disease, possibly in association with her cardiomyopathy. I think the most prudent course of action in this setting is placement of a permanent pacemaker. She does not qualify for an ICD based on her degree of LV dysfunction. However, given her mild LV dysfunction and history of cardiomyopathy, I do think a biventricular device is her best option in order to prevent worsening of LV function with 100 percent ventricular pacing. (2) Syncope: Related to heart block. (3) LBBB (left bundle branch block): Her current rhythm demonstrates a right bundle branch block which is likely ventricular escape rhythm. Given her history of significant conduction disease do not believe that medications are solely responsible for her current degree of heart block. Permanent pacing is recommended as noted above. (4) Nonischemic cardiomyopathy: Overall LV function appears fairly good. Borderline reduced LV systolic function. However ejection fraction is likely around 50 percent. General she does not appear to have limiting symptoms. Current symptoms are more likely related to her degree of bradycardia and cardiomyopathy. She has been maintained on metoprolol succinate and lisinopril. Renal function is slightly compromised but possibly related to hydration and overall reduced cardiac output given her degree of bradycardia. She will continue her medical therapy. Biventricular device would be implanted given her known cardiomyopathy and need for 100 percent ventricular pacing. History of Present Illness Reason for Consultation: Syncope, bradycardia, complete heart block Requesting Physician: Natali Attending Physician: Zeeshan Stock MD History of Present Illness Patient is a 79-year-old woman with a history of an a nonischemic cardiomyopathy and previously documented left bundle branch block who presented the emergency room after syncopal episode yesterday. Patient states that approximately 1 month she has been feeling poorly. She states she has had little energy had an element of exercise intolerance and dyspnea with exertion. She is also having frequent episodes of dizziness. She denies symptoms of chest discomfort over that period of time. She does have an element of orthopnea which appears to have started approximately 2 weeks ago. Yesterday she was bending over the shower when she apparently lost consciousness. She was brought to the emergency room when she discovered have complete heart block. In general, the patient is an active individual who is able to perform routine things around the house. She generally does not have limiting dyspnea. She does live in [place] 4 [place]. She does have some mild dyspnea after climbing a flight of stairs but never has to stop and catch her breath. Again, no exertional chest discomfort. She has not been reporting any other constitutional symptoms recently. She does have some very mild nasal congestion but denied fevers or chills. No abdominal complaints. No recent nausea or vomiting. Orthopnea as noted above. No significant lower extremity edema only some mild swelling in her feet. No sense of palpitations. She cannot recall any other syncopal episodes. Allergies Allergy/AdvReac Type Severity Reaction Status Date / Time No Known Allergies Allergy Verified 05/11/19 08:49 Home Medications Home Medications Medication Instructions Recorded Confirmed Type Saccharomyces boulardii 250 mg 250 mg PO BID #60 cap 09/23/18 06/06/19 Rx capsule prazosin 1 mg capsule 1 mg PO QPM #30 cap 09/23/18 06/06/19 Rx bupropion HCl 150 mg tablet,12 hr 150 mg PO BID ea 01/03/19 06/06/19 History sustained-release trazodone 50 mg tablet 50 mg PO HS #30 tab 01/03/19 06/06/19 History Centrum Silver Women 1 tab PO QAM 05/03/19 06/06/19 History aspirin 81 mg PO QAM 05/03/19 06/06/19 History cholecalciferol (vitamin D3) 1,000 units PO QAM 05/03/19 06/06/19 History ferrous sulfate [Feosol] 325 mg PO QPM 05/03/19 06/06/19 History hydroxyurea 1,000 mg PO [id number] 05/03/19 06/06/19 History lisinopril 40 mg PO QAM 05/03/19 06/06/19 History metformin 500 mg PO QPM 05/03/19 06/06/19 History metoprolol succinate 150 mg PO DAILY 05/03/19 06/06/19 History vitamin [id number] acid 1 tab PO QAM 05/03/19 06/06/19 History atorvastatin 20 mg tablet 20 mg PO QPM #90 tab 06/01/19 06/06/19 Rx hydroxyurea 1,500 mg PO WK 06/06/19 06/06/19 History olanzapine 10 mg PO DAILY 06/06/19 06/06/19 History Patient History Medical History Alcohol abuse, 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) QUIT DRINKING APPROX 10 YEARS AGO CKD (chronic kidney disease), stage III (Chronic) PCP MONITORS Depression Diabetes mellitus, type 2 NIDDM Diarrhea GERD (gastroesophageal reflux disease) History of gastric ulcer History of GI bleed History of nephrolithiasis Hyperlipidemia Hypertension (Chronic) Mild CAD FOLLOWS W/ [facility] Nonischemic cardiomyopathy (Chronic) 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) Osteoarthritis Poor historian Primary thrombocytopenia, unspecified (Chronic 02/27/11) Sacroiliac dysfunction Sleep apnea CPAP Surgical History History of Achilles tendon repair LEFT History of cardiac cath 2014 - [place] - NO STENTS History of colonoscopy with polypectomy History of cystoscopy History of esophagogastroduodenoscopy (EGD) History of hysterectomy with bilateral oophorectomy History of inguinal hernia repair RIGHT History of knee surgery LEFT History of tonsillectomy Family History Brother Colorectal cancer Other Bladder cancer Diabetes Hypertension Lymphoma Nephrolithiasis Social History Preferred Language: Latvian Communication Ability: Effective Visual Impairment: No Limitations Hearing Ability: Normal Business Records Manager Required: No Beliefs That Will Affect Care: None marital status: Current Living Situation: Spouse current occupational status: retired Other Information That Helps Us Care for You: No Feels Safe at Home: Yes Safety Concerns: Feels Safe At This Time Smoking Status: Unknown if ever smoked Hx Alcohol Use: No Hx Substance Use: No Childhood Exposure to Second-Hand Smoke: Yes caffeine: Yes Dental Care, Regularly: Yes Physical Activity Frequency: Does not Exercise Seatbelt Use: always Sunscreen Use: No Review of Systems Review of Systems: All systems reviewed & are unremarkable except as noted in HPI & below Physical Exam Physical Exam: The patient is alert and oriented. Mood and affect appeared normal. He answered all questions appropriately. HEENT: Pupils are equal and reactive to light and accommodation. Extraocular movements are intact. The sclerae are anicteric. Alopecia noted Neuro: Cranial nerves intact Neck: Patient's neck is supple. He has palpable carotid pulses bilaterally without bruits on auscultation. There is no evidence of jugular venous distention. The thyroid is not enlarged. Lungs: Clear to auscultation bilaterally. He has good air movement without use of accessory muscles. No rales wheezes or rhonchi. Cardiac: Heart demonstrates a very bradycardic rate and regular rhythm. Normal S1 and S2. No murmurs on examination. Pulses: The patient has palpable radial pulses bilaterally that are equal in intensity Extremities: There was no evidence of hypoperfusion. There is no cyanosis or clubbing. There is no edema. Skin: I did not appreciate any rashes on examination today. Results & Data ([facility]) Vital Signs (Past 12 Hours) Vital Signs Temp Pulse Pulse Resp BP Pulse Ox 06/07/19 11:10 36.7 C 27 L 18 148/76 H 94 06/07/19 09:00 26 L 06/07/19 03:52 36.7 C 27 L 18 170/70 H 95 06/07/19 00:43 36.5 C 27 L 16 94 Laboratory Results Abnormal Lab Results 06/06/19 06/06/19 06/06/19 20:42 20:42 20:42 WBC 7.62 RBC 2.99 L Hgb 12.6 Hct 37.1 MCV 124.1 H MCH 42.1 H MCHC 34.0 RDW Std Deviation 62.2 H RDW Coeff of Iram 13.9 Plt Count 287 MPV 10.9 H Immature Gran % (Auto) 0.4 Neut % (Auto) 73.1 Lymph % (Auto) 19.0 [place] % (Auto) 6.6 Eos % (Auto) 0.8 Baso % (Auto) 0.1 Immature Gran # (Auto) 0.03 H Neut # (Auto) 5.57 Lymph # (Auto) 1.45 [place] # (Auto) 0.50 Eos # (Auto) 0.06 Baso # (Auto) 0.01 Macrocytosis Present PT 11.3 INR 1.1 Sodium 137 Potassium 4.9 Chloride 106 Carbon Dioxide 20 L Anion Gap 11.0 BUN 35 H Creatinine 2.04 H Est Cr Clr Drug Dosing Not Reportable Est GFR ( Amer) 26.6 Est GFR (Non-Af Amer) 22.9 BUN/Creatinine Ratio 16.9 Glucose 214 H POC Glucose Calcium 9.9 Magnesium 2.0 Total Bilirubin 0.5 AST 70 H ALT 48 Alkaline Phosphatase 85 Troponin I 0.016 Total Protein 7.0 Albumin 3.5 Globulin 3.5 Albumin/Globulin Ratio 1.0 TSH 4.610 H Free T4 1.11 Urine Color Urine Appearance Urine pH Ur Specific [place] Urine Protein Urine Glucose (UA) Urine Ketones Urine Blood Urine Nitrite Urine Bilirubin Urine Urobilinogen Ur Leukocyte Esterase Urine WBC (Auto) Urine RBC (Auto) U Hyaline Cast (Auto) U Epithel Cells (Auto) Urine Bacteria (Auto) 06/07/19 06/07/19 06/07/19 00:38 02:57 06:04 WBC RBC Hgb Hct MCV MCH MCHC RDW Std Deviation RDW Coeff of [place] Plt Count MPV Immature Gran % (Auto) Neut % (Auto) Lymph % (Auto) [place] % (Auto) Eos % (Auto) Baso % (Auto) Immature Gran # (Auto) Neut # (Auto) Lymph # (Auto) [place] # (Auto) Eos # (Auto) Baso # (Auto) Macrocytosis PT INR Sodium Potassium Chloride Carbon Dioxide Anion Gap BUN Creatinine Est Cr Clr Drug Dosing Est GFR ( Amer) Est GFR (Non-Af Amer) BUN/Creatinine Ratio Glucose POC Glucose 131 H 148 H Calcium Magnesium Total Bilirubin AST ALT Alkaline Phosphatase Troponin I Total Protein Albumin Globulin Albumin/Globulin Ratio TSH Free T4 Urine Color Yellow Urine Appearance Clear Urine pH 5.0 Ur Specific [place] 1.019 Urine Protein 2+ H Urine Glucose (UA) Negative Urine Ketones Negative Urine Blood Trace H Urine Nitrite Negative Urine Bilirubin Negative Urine Urobilinogen Negative Ur Leukocyte Esterase Negative Urine WBC (Auto) 1-5 Urine RBC (Auto) 0-4 U Hyaline Cast (Auto) 1-5 U Epithel Cells (Auto) >30 H Urine Bacteria (Auto) Negative 06/07/19 11:31 WBC RBC Hgb Hct MCV MCH MCHC RDW Std Deviation RDW Coeff of Iram Plt Count MPV Immature Gran % (Auto) Neut % (Auto) Lymph % (Auto) [place] % (Auto) Eos % (Auto) Baso % (Auto) Immature Gran # (Auto) Neut # (Auto) Lymph # (Auto) [place] # (Auto) Eos # (Auto) Baso # (Auto) Macrocytosis PT INR Sodium Potassium Chloride Carbon Dioxide Anion Gap BUN Creatinine Est Cr Clr Drug Dosing Est GFR ( Amer) Est GFR (Non-Af Amer) BUN/Creatinine Ratio Glucose POC Glucose 166 H Calcium Magnesium Total Bilirubin AST ALT Alkaline Phosphatase Troponin I Total Protein Albumin Globulin Albumin/Globulin Ratio TSH Free T4 Urine Color Urine Appearance Urine pH Ur Specific [place] Urine Protein Urine Glucose (UA) Urine Ketones Urine Blood Urine Nitrite Urine Bilirubin Urine Urobilinogen Ur Leukocyte Esterase Urine WBC (Auto) Urine RBC (Auto) U Hyaline Cast (Auto) U Epithel Cells (Auto) Urine Bacteria (Auto) Diagnostic Findings Chest x-ray obtained at the time of admission which revealed cardiomegaly. No pulmonary edema Echocardiogram obtained today revealed mildly reduced LV systolic function. No significant valvular heart disease ECG Additional Comments: Complete heart block with ventricular escape rhythm. PG Care Time/CCT Total # of Minutes Spent Total Time Spent with Patient: Total time spent is greater than 50% in coordination of care (as documented) at patient's floor/unit and/or counseling patient: Coding Level of Care Code 15568 Initial Inpt Care Lvl 3 Diagnoses Third degree heart block I44.2 Syncope R55 Syncope type: unspecified LBBB (left bundle branch block) I44.7 Nonischemic cardiomyopathy I42.8 (1) Syncope Syncope type: unspecified Qualified Code(s): R55 - Syncope and collapse
--- NOTE | 2019-06-07 12:28 | Pre Anesthesia Assessment ---
Date of Service June 07, 2019 Pre Sedation Assessment Vital Signs Temp Pulse Pulse Resp BP BP Pulse Ox 06/07/19 11:10 36.7 C 27 L 18 148/76 H 94 06/07/19 09:00 26 L 06/07/19 03:52 36.7 C 27 L 18 170/70 H 95 06/07/19 00:43 36.5 C 27 L 16 94 06/06/19 23:45 36 L 20 190/88 H 96 06/06/19 22:42 35 L 20 164/82 H 96 06/06/19 21:57 31 L 18 172/82 H 96 06/06/19 21:34 94 06/06/19 21:15 37.1 C 27 L 17 170/72 H 94 Cardiovascular + regular rate and + bradycardic Respiratory + respiratory effort normal Pre-Sedation Airway Assessment Smoking Status: Unknown if ever smoked Hx Sleep Apnea: No Hx Difficult Intubation: No Short, Thick Neck: Yes Thyromental Distance: < 3.5 Finger Breadths Oral Cavity: + WNL Mallampati Class: III ASA: ASA3 Procedure Planning Contraindications for Sedation: none Current Medications Reviewed: Yes Notes The planned sedation has been discussed with the patient. Informed Consent was obtained. I have identified the patient, determined the appropriateness of sedation and have assessed the patient immediately prior to the procedure. All medicine(s) and interventions are by my order.
[2019-06-07] MEDS ORDERED: MIDAZOLAM HCL 5 MG/ML 1 ML VIAL ONE (14:38)
[2019-06-07] MEDS ORDERED: fentaNYL citrate 100 MCG/2 ML VIAL ONE (14:38)
--- NOTE | 2019-06-07 14:38 | Electrocardiogram Report ---
Test Reason : Blood Pressure : / mmHG Vent. Rate : 027 BPM Atrial Rate : 064 BPM P-R Int : 000 ms QRS Dur : 132 ms QT Int : 614 ms P-R-T Axes : 054 057 -01 degrees QTc Int : 411 ms Sinus rhythm with complete heart block and Idioventricular rhythm Right bundle branch block T wave abnormality, consider anterolateral ischemia Abnormal ECG When compared with ECG of 30-MAY-2015 23:56, Idioventricular rhythm has replaced Sinus rhythm Vent. rate has decreased BY 43 BPM Confirmed by Pascual Saavedra ([id number]) on 06/07/2019 2:37:52 PM Referred By: REFERRED SELF Confirmed By:Jack Saavedra
[2019-06-07] MEDS ORDERED: CEFAZOLIN 250 MG/ML 1 GM VIAL ONE (14:39)
--- NOTE | 2019-06-07 14:40 | Electrocardiogram Report ---
Test Reason : Blood Pressure : / mmHG Vent. Rate : 027 BPM Atrial Rate : 069 BPM P-R Int : 000 ms QRS Dur : 128 ms QT Int : 620 ms P-R-T Axes : 057 022 014 degrees QTc Int : 415 ms Sinus rhythm with complete heart block and Idioventricular rhythm Right bundle branch block T wave abnormality, consider anterior ischemia Abnormal ECG When compared with ECG of 06-JUN-2019 21:06, (unconfirmed) No significant change was found Confirmed by Pascual Saavedra ([id number]) on 06/07/2019 2:39:50 PM Referred By: REFERRED SELF Confirmed By:Jack Saavedra
[2019-06-07] MEDS ORDERED: BACITRACIN INJ 50,000 UNIT VIAL ONE (14:48)
[2019-06-07] MEDS ORDERED: LIDOCAINE HCL 1% 20 ML VIAL ONE ×2 (14:48→15:31)
[2019-06-07] MEDS ORDERED: BUPIVACAINE 0.5 % 5 MG/1 ML PF 10ML VIAL ONE (14:48)
--- NOTE | 2019-06-07 14:49 | Hospitalist Progress Note ---
Date of Service June 07, 2019 Assessment & Plan (1) Third degree heart block: Rate is variable from 25-35, with systolic blood pressure maintained in the 160 range. - Continue lisinopril 40 mg every morning. - Hold metoprolol succinate 150 mg p.o. daily. Admitting doctor did confirm with patient that she did not inadvertently take extra metoprolol. - Plan for pacemaker today with Dr. Saavedra. (2) Syncope: Secondary to third-degree heart block. Patient reports that she has been having increased fatigue with less and less physical activity over the past weeks. (3) Type 2 diabetes mellitus: - Hold metformin. - Placed on Accu-Cheks before meals and at bedtime/every 6 hours with NovoLog coverage. - Blood sugars stable today ~150. (4) Hypertension: BP 150/75 even with a HR in the 20s. - Continue ACEi as above - Hold beta-jeovany (5) Nonischemic cardiomyopathy: Ordering a 2D echocardiogram with [employer] for comparison. (6) Nonocclusive coronary atherosclerosis of [place] coronary artery: See above (7) Hyperlipidemia: Continue atorvastatin 20 mg every evening (8) Acute kidney injury superimposed on chronic kidney disease: Creatinine was 2.04 upon admission, with baseline 1.09-1.52. We will rehydrate with normal saline, recheck laboratories in the a.m. (9) Depression: These medications may cause orthostatic hypotension, but should not be associated with third-degree heart block - Continue bupropion, olanzapine, prazosin and trazodone. (10) Primary thrombocytopenia, unspecified: Continue hydroxyurea Admission and Anticipated Discharge Date Admission Date: June 06, 2019 Subjective Feels tired, but otherwise ok. Not lightheaded or dizzy. Reports no fevers/chills, chest pain, shortness of breath, abdominal pain, nausea, or vomiting. Physical Exam Constitutional: WD/WN, vitals as above Eyes: EOM intact bilaterally; no conjunctival abnormality ENMT: external ear and nose normal, oropharynx normal Neck: trachea midline, no thyromegaly normal visual inspection Respiratory: normal respiratory effort, lungs clear to auscultation no respiratory distress Cardiovascular: Rate/Rhythm: regular rate, regular rhythm and + bradycardic Vessels: no JVD Extremities: no edema Gastrointestinal (Abdomen): Inspection/Auscultation: abdomen normal to inspection; abdomen not distended Musculoskeletal: no cyanosis or clubbing, extremities motor strength 5/5 Skin: no rashes, warm and dry Neurologic: moves all extremities and awake Psychiatric: Orientation: alert, oriented to person and cooperative Results & Data ([facility]) Vital Signs (Past 12 Hours) Vital Signs Temp Pulse Pulse Resp BP Pulse Ox 06/07/19 14:40 28 L 18 96 06/07/19 11:10 36.7 C 27 L 18 148/76 H 94 06/07/19 09:00 26 L 06/07/19 03:52 36.7 C 27 L 18 170/70 H 95 PG Care Time/CCT Total # of Minutes Spent Total Time Spent with Patient: Total time spent is greater than 50% in coordination of care (as documented) at patient's floor/unit and/or counseling patient: Coding Level of Care Code 82862 Subseq Hosp Care Lvl 3 Diagnoses Third degree heart block I44.2 Syncope R55 Syncope type: unspecified Type 2 diabetes mellitus E11.9 Hypertension I10 Nonischemic cardiomyopathy I42.8 Nonocclusive coronary atherosclerosis of [place] coronary artery I25.10 Hyperlipidemia E78.5 Acute kidney injury superimposed on chronic kidney disease N17.9; N18.9 Depression F32.9 Primary thrombocytopenia, unspecified D69.49 (1) Syncope Syncope type: unspecified Qualified Code(s): R55 - Syncope and collapse
[2019-06-07] MEDS ORDERED: OXYCODONE HCL IR 5 MG TAB (IMMEDIATE RELEASE) PO PRN (16:47)
--- NOTE | 2019-06-07 16:47 | Post Anesthesia Assessment ---
Date of Service June 07, 2019 Post Sedation Assessment Vital Signs Temp Pulse Pulse Resp BP BP Pulse Ox 06/07/19 14:40 28 L 18 96 06/07/19 14:20 27 L 06/07/19 11:10 36.7 C 27 L 18 148/76 H 94 06/07/19 09:00 26 L 06/07/19 03:52 36.7 C 27 L 18 170/70 H 95 06/07/19 00:43 36.5 C 27 L 16 94 06/06/19 23:45 36 L 20 190/88 H 96 06/06/19 22:42 35 L 20 164/82 H 96 06/06/19 21:57 31 L 18 172/82 H 96 06/06/19 21:34 94 06/06/19 21:15 37.1 C 27 L 17 170/72 H 94 Recovery Score Activity: Moves 4 extremities Respiration: Deep Breath/Cough Circulation: +/-50% PreAnes Value Consciousness: Fully Awake Oxygen Saturation: > 92% On Room Air Discharge Sedation Level of Care: Fast Track Phase II Post Sedation Plan On clinical assessment, the patient appears to have tolerated the sedation without complications. Patient is recovering as anticipated. Patient will continue to be monitored by nursing and may be discharged when sedation discharge criteria are met per below protocol. Upon Completions of procedure up to 15 minutes continue every 5 minute vital signs and the P.A.R. score; then discharge to a Phase I or Fast Track to Phase II per the following guidelines: * Discharge Patient to appropriate Phase II area if PAR is 8 or greater or return to pre- procedure baseline. The post - procedure orders will be as directed. * If PAR score is less than 8 or not return to pre-procedure baseline then patient will follow Phase I monitoring till PAR is reached for Phase II. The Phase I may be done in procedure room or may call to secure a Phase I area. * If naloxone or flumazenil are used for reversal, hold in Phase I for continued monitoring from when last reversal dose was given for a minimum of 60 minutes or longer pending the nurse and/or physician discretion of patient condition before discharge to Phase II. Please call the Sedation Physician to re-evaluate and complete post-note for discharge to Phase II area. Do NOT discharge from procedure sedation or Phase 1 until post- sedation evaluation note is complete by procedure /sedation MD Sedation Discharge Instructions to be given to the patient at discharge to home.
--- NOTE | 2019-06-07 16:54 | Electrophysiology Report ---
Date of Service June 07, 2019 Electrophysiology Procedure Electrophysiology Procedure Report Procedure performed: Implantation of biventricular pacemaker Staff retail leader: Pascual Saavedra MD Indication: The patient is a 79-year-old woman with a history of nonischemic cardiomyopathy who presented to the hospital after episode of syncope. She was noted to be in complete heart block. She still be a good candidate for permanent pacemaker due to symptomatic nonreversible AV node dysfunction. A biventricular device was selected as able to maintain AV synchrony as well as provide LV pacing in the setting of her cardiomyopathy and the need for 100% ventricular pacing. Procedure in detail: The patient was informed of the risks benefits and alternatives to the intended procedure and she wished to proceed. She was taken to the electrophysiology suite in a fasting state. A preoperative antibiotic had been administered. The patient was monitored electrocardiographically throughout today's procedure and conscious sedation was administered per protocol. The left upper pectoral area is prepped and draped in usual sterile fashion. This area was anesthetized using subcutaneous administration of a xylocaine solution. An incision was made at this site and carried down to the prepectoralis fascia using sharp dissection. Electrocautery was also employed for dissection as well as for hemostasis. A device pocket was fashioned tissues above the pectoralis muscle. Subsequent to this maneuver the left axillary vein was accessed using modified Seldinger technique. Sheaths were placed over guidewires at this site and used to facilitate passage of the pacing leads to the respective chambers under fluoroscopic guidance. This included right atrial and right ventricular leads. Adequate sensing and threshold parameters were obtained prior to Active fixation of the leads to the endocardial surface. The proximal portion leads were then sutured the prepectoral fascia using nonabsorbable suture. After placement of the atrial and ventricular leads a third sheath was placed over guidewire and use facilitate passage of a guiding catheter for engagement of the coronary sinus. Once engaged limited coronary sinus venography was performed in order to identify suitable target vessel. Standard guidewire techniques were then employed to deliver the coronary sinus pacing lead to the target vessel. Adequate sensing threshold parameters in the absence of diaphragmatic stimulation at high output were confirmed prior to removal of the guiding sheath. The proximal portion of this lead was then sutured to the prepectoralis fascia using nonabsorbable suture. The device pocket was irrigated with antibiotic solution. The leads were then attached to the device. The device and leads were then placed in the pocket and pocket was closed in 3 layers of absorbable suture. Steri-Strips and sterile dressing were applied. The device was tested noninvasively prior to conclusion the procedure. The patient tolerated procedure well there no immediate complications. Equipment used: New pulse generator: [employer]. Model number: W4 TR 02 serial number [id number] Right atrial lead: [employer]. Model number: 5076 serial number [id number] Right ventricular lead: Primary [employer]. Model number: 5076 serial number [id number] Left ventricular lead: Primary [employer] Professor [employer] model #4298 serial number [id number] Measured data: Right atrial lead: P waves measured 1.6 mV. Pacing threshold 1.25 V 0.4 ms with a pacing impedance of 494 ohms Right ventricular lead: No intrinsic R waves are measured. Pacing thresholds 0.5 V at 0.4 ms with a pacing impedance of 589 ohms Left ventricular lead: No intrinsic R waves are measured. Pacing threshold 1.6 V at 0.4 ms with a pacing impedance of 494 ohms in the LV to the LV 3 conf iguration Impression: Successful implantation of biventricular pacemaker [facility] Electrophysiology codes Pacing Procedure 1: Pacin Insert/Replace Pacer A & V Procedure 2: Pacin BiV electrode w/Pacer / ICD implant, add on code PG Moderate Sedation Codes Moderate Sedation Codes Procedure 1: Sedation/Anesthesia: 89772 Mod Sedation by the same physician;Init15 Min Child Age 5 & Up Procedure 2: Sedation/Anesthesia: 12412 Mod Sedation by the same physician; Ea [id number] Minutes
[2019-06-07] MEDS ORDERED: HydrALAZINE HCL 20 MG/ML VIAL IV STA (17:41)
[2019-06-07] MEDS ORDERED: HydrALAZINE HCL 20 MG/ML VIAL IV ONE (19:24)
[2019-06-07] MEDS ORDERED: LABETALOL HCL IV 5 MG/ML 20ML IV STA ×4 (21:11→23:25)
[2019-06-07] MEDS: CEFAZOLIN 2000MG 2,000 MG/15 ML SYR IV SCH (22:58)
[2019-06-08] MEDS ORDERED: LABETALOL HCL IV 5 MG/ML 20ML IV STA ×2 (00:19→01:35)
[2019-06-08] MEDS ORDERED: STAT IV Infusion **Titration per Protocol STA ×2 (02:57→05:17)
[2019-06-08] MEDS ORDERED: LABETALOL HCL 300 MG in DEXTROSE 5% 240 ML IV ONE (03:30)
--- NOTE | 2019-06-08 03:44 | Communication Note ---
Date of Service: June 08, 2019 I was contacted by nursing frequently throughout the night to the patient's resistant hypertension. We attempted to gain control of the patient's blood pressure with hydralazine initially she received a total of 15 mg of hydralazine without significant improvement in her blood pressure. We then attempted boluses of labetalol starting with 10 mg and then providing 5x20 mg boluses without significant improvement in her blood pressure. She collectively received 110 mg of labetalol via bolus without significant improvement in her blood pressure. Given the inability to obtain adequate control of her blood pressure using bolus of medication patient was transitioned to labetalol drip. Resident Activity Tracking Resident Involvement: Resident Care Provided Care Provided: Adult [facility] Medicine
[2019-06-08 04:52] LABS: Hematocrit (blood only) 34.5 % (37-47); Hemoglobin 11.6 g/dL (12.0-16.0); Mean Corpuscular Hgb Conc 33.6 g/dL (32-36); Mean Corpuscular Volume 121.9 fL (80-100); Mean Platelet Volume 10.1 fL (7.4-10.4); Platelet Count 210 K/uL (130-400); RDW Coefficient of Variation 13.7 % (11.5-14.5); RDW Standard Deviation 61.3 fL (36.4-46.3); Red Blood Count 2.83 M/uL (4.2-5.4); White Blood Count 6.75 K/uL (4.8-10.8)
[2019-06-08 05:21] LABS: BUN Creatinine Ratio 17.2 (10-20); Calcium 8.7 mg/dl (8.5-10.1); Creatinine Clr Calc Pharmacy 39.7 ml/min; Est GFR (African American) 42.6; Est GFR (Non-African American) 36.8; Potassium 4.1 mmol/L (3.5-5.1)
[2019-06-08] MEDS: INSULIN ASPART 100 UNITS/ML 3 ML PEN SC SCH ×4 (07:54→20:06)
[2019-06-08] MEDS: CEFAZOLIN 2000MG 2,000 MG/15 ML SYR IV SCH ×2 (07:58→16:51)
--- NOTE | 2019-06-08 10:09 | XRay Report ---
XR chest 2V PA/lateral HISTORY: Status post pacemaker. COMPARISON: Chest 06/06/2019. FINDINGS: No pneumothorax. A few left basilar linear densities suggesting subsegmental atelectasis. T he heart remains mildly enlarged. Bilateral hilar prominence persists. There is a left-sided pacemake r. The leads appear intact. Trace bilateral pleural effusions. No evidence for pulmonary edema. IMPRESSION: 1. Status post left-sided pacemaker placement. The leads appear intact. 2. No pneumothorax. 3. Trace bilateral pleural effusions. 4. Left basilar linear densities favor subsegmental atelectasis. 5. Stable bilateral hilar prominence. This may represent pulmonary arterial hypertension. ACT 112: Negative or not required by law. Electronically signed by: Sim Griffith M.D. 06/08/2019 10:07 AM
[2019-06-08] MEDS ORDERED: lisinopriL 40 MG TAB PO STA (10:21)
--- NOTE | 2019-06-08 10:27 | Cardiology Progress Note ---
Date of Service June 08, 2019 Assessment & Plan (1) Third degree heart block: She underwent successful implantation of biventricular pacemaker tomorrow. Normal function. No evident complication. She should refrain from lifting her left arm above her shoulder or behind her neck for 6 weeks. She should keep the wound dry in the Steri-Strips intact until follow-up in our clinic next week. (2) Syncope: Related to heart block. (3) LBBB (left bundle branch block): Currently paced. (4) Nonischemic cardiomyopathy: Overall function appeared fairly good. However with mildly reduced LV function and history of cardiomyopathy biventricular device was implanted. She should continue on her outpatient regimen which includes both metoprolol succinate and lisinopril. (5) Hypertension: She had severe hypertension over the course of the evening. There is also some concern about headache. She was placed on a nicardipine infusion. Curiously, she was on a fairly aggressive antihypertensive regimen as an outpatient that was not started as an inpatient. I expect her markedly elevated blood pressures are related to missing her medications. I Put her back on her outpatient regimen. Subjective For the patient claims to be feeling well. She denies significant discomfort at the implant site. Headache that she had last night has resolved. No other specific complaints. Review of Systems Review of Systems: Per HPI. Physical Exam Physical Exam: She is alert and oriented x3. Mood affect appear normal. She answered all questions appropriately. Flat affect HEENT: Sclerae are anicteric. Pupils are equal and reactive to light and accommodation. Extraocular movements were intact. Neuro: Cranial nerves intact Lungs: Lungs are clear to auscultation bilaterally. There are no rales wheezes or rhonchi. She has normal respiratory effort without use of accessory muscles. There is normal pulmonary excursion. Cardiac: The rhythm was regular. S1 and S2 were normal. Systolic ejection murmur. The PMI was not markedly displaced on palpation. Chest: Device implant site appears to be healing well. Mild ecchymosis along the incision. No drainage. No significant hematoma. Skin: There are no rashes noted on examination today. Results & Data Vital Signs (Past 12 Hours) Vital Signs Temp Pulse Pulse Resp BP BP Pulse Ox 06/08/19 08:00 37.0 C 74 17 161/87 H 94 06/08/19 06:39 76 19 182/63 H 92 06/08/19 06:09 77 15 166/80 H 94 06/08/19 05:39 81 15 190/99 H 95 06/08/19 05:10 81 13 230/76 H 96 06/08/19 04:46 81 19 230/81 H 94 06/08/19 04:07 36.7 C 81 22 212/66 H 95 06/08/19 04:00 82 06/08/19 00:17 204/73 H 06/07/19 23:23 36.8 C 86 18 207/77 H 91 06/07/19 22:30 217/71 H Laboratory Results Abnormal Lab Results 06/07/19 06/07/19 06/07/19 11:31 17:22 20:33 WBC RBC Hgb Hct MCV MCH MCHC RDW Std Deviation RDW Coeff of Iram Plt Count MPV Sodium Potassium Chloride Carbon Dioxide Anion Gap BUN Creatinine Est Cr Clr Drug Dosing Est GFR ( Amer) Est GFR (Non-Af Amer) BUN/Creatinine Ratio Glucose POC Glucose 166 H 123 H 140 H Calcium 06/08/19 06/08/19 06/08/19 04:30 04:30 07:51 WBC 6.75 RBC 2.83 L Hgb 11.6 L Hct 34.5 L MCV 121.9 H MCH 41.0 H MCHC 33.6 RDW Std Deviation 61.3 H RDW Coeff of Iram 13.7 Plt Count 210 MPV 10.1 Sodium 138 Potassium 4.1 D Chloride 110 H Carbon Dioxide 24 Anion Gap 4.0 BUN 24 H Creatinine 1.38 H D Est Cr Clr Drug Dosing 39.7 Est GFR ( Amer) 42.6 Est GFR (Non-Af Amer) 36.8 BUN/Creatinine Ratio 17.2 Glucose 167 H POC Glucose 185 H Calcium 8.7 Diagnostic Findings Chest x-ray demonstrated good lead position without evidence of pneumothorax Device interrogation revealed good function of all leads. No intrinsic R waves. (1) Syncope Syncope type: unspecified Qualified Code(s): R55 - Syncope and collapse
[2019-06-08] MEDS: OLANZapine 10 MG TAB PO SCH (11:13)
[2019-06-08] MEDS: METOPROLOL TARTRATE 50 MG TAB PO SCH ×2 (11:13→20:01)
--- NOTE | 2019-06-08 14:59 | Electrocardiogram Report ---
Test Reason : Blood Pressure : / mmHG Vent. Rate : 075 BPM Atrial Rate : 075 BPM P-R Int : 136 ms QRS Dur : 138 ms QT Int : 476 ms P-R-T Axes : 053 -73 087 degrees QTc Int : 531 ms Atrial-sensed ventricular-paced rhythm Biventricular pacemaker detected Abnormal ECG When compared with ECG of 07-JUN-2019 06:21, Electronic ventricular pacemaker has replaced Idioventricular rhythm Vent. rate has increased BY 48 BPM Confirmed by Pascual Saavedra ([id number]) on 06/08/2019 2:59:46 PM Referred By: REFERRED SELF Confirmed By:Jack Saavedra
--- NOTE | 2019-06-08 20:33 | Hospitalist Progress Note ---
Date of Service June 08, 2019 Assessment & Plan (1) Third degree heart block: POD #1 s/p permanent pacemaker placement. no complications from such. device functioning well. appreciate Dr Saavedra's consultation and assistance. (2) Syncope: likely 2nd to complete heart block. recent weakness also likely 2nd to heart block. if fatigue/weakness persist despite Rx of above will need additional work-up. (3) Hypertension: hypertensive emergency overnight requiring transfer to ICU for nicardipine infusion. BPs improved today. transitioned off drip to PO meds (lisinopril, metoprolol). may need additional agents if BPs remain high (would go with amlodipine next). also resume prazosin 1mg HS. (4) Type 2 diabetes mellitus: Holding metformin. NovoLog coverage for meals. Controlled. (5) Nonischemic cardiomyopathy: echo - EF 45-50% with wall motion abnormalities. this will need additional work-up as outpatient. compensated from volume standpoint at this time. (6) Nonocclusive coronary atherosclerosis of [place] coronary artery: 2015 heart cath with mild disease of all 3 major vessels. this easily could be worse 5 years later. cont beta jeovany. cont asa. cont statin. (7) Hyperlipidemia: Continue atorvastatin 20 mg every evening (8) Acute kidney injury superimposed on chronic kidney disease: Creatinine was 2.04 upon admission. Creatinine improved today. Baseline CrCl suggests CKD stage 3. (9) Depression: Continue bupropion, olanzapine, prazosin and trazodone. (10) Primary thrombocytopenia, unspecified: Continue hydroxyurea macrocytosis - check folate in am; previous b12 and tsh wnl PT, OT evals updated Admission and Anticipated Discharge Date Admission Date: June 06, 2019 Subjective events of last 24 hours noted. required ICU transfer for nicardipine drip due to hypertensive emergency. this was weaned off after oral agents were reinstated by cardiology today. her headache is resolved. eating ok. did sit in chair for a period of time today but she is weak. tele during my visit - pacing. Review of Systems Constitutional: + fatigue Respiratory: no cough and no dyspnea Cardiovascular: no chest pain Gastrointestinal: no abdominal pain Physical Exam Constitutional: no acute distress and no altered mental status ENMT: external ear and nose normal, oropharynx normal Respiratory: normal respiratory effort, lungs clear to auscultation Cardiovascular: Rate/Rhythm: regular rate and regular rhythm Heart Sounds: normal S1 and normal S2; no murmur Vessels: posterior tibial pulses present and dorsalis pedis pulses present; no JVD Extremities: no edema Chest (Breasts): Chest: + pacemaker (site - left upper chest - mild swelling only, mild ecchymoses) Gastrointestinal (Abdomen): normal bowel sounds, soft, nontender, no hepatosplenomegaly Psychiatric: A+Ox3, euthymic affect Results & Data ([facility]) Vital Signs (Past 12 Hours) Vital Signs Temp Pulse Resp BP Pulse Ox 06/08/19 18:24 72 20 169/98 H 06/08/19 17:46 71 20 180/86 H 06/08/19 17:00 72 17 183/90 H 94 06/08/19 16:00 36.9 C 73 20 06/08/19 13:15 65 16 157/72 H 06/08/19 12:13 70 22 150/75 H 06/08/19 12:00 73 22 06/08/19 11:25 36.8 C 72 23 151/62 H 94 06/08/19 10:41 69 22 06/08/19 10:40 68 15 147/53 H 06/08/19 10:00 68 19 93 Laboratory Results Laboratory Results - last 24 hr 06/07/19 06/08/19 06/08/19 20:33 04:30 04:30 WBC 6.75 RBC 2.83 L Hgb 11.6 L Hct 34.5 L MCV 121.9 H MCH 41.0 H MCHC 33.6 RDW Std Deviation 61.3 H RDW Coeff of Iram 13.7 Plt Count 210 MPV 10.1 Sodium 138 Potassium 4.1 D Chloride 110 H Carbon Dioxide 24 Anion Gap 4.0 BUN 24 H Creatinine 1.38 H D Est Cr Clr Drug Dosing 39.7 Est GFR ( Amer) 42.6 Est GFR (Non-Af Amer) 36.8 BUN/Creatinine Ratio 17.2 Glucose 167 H POC Glucose 140 H Calcium 8.7 06/08/19 06/08/19 06/08/19 07:51 11:12 16:49 WBC RBC Hgb Hct MCV MCH MCHC RDW Std Deviation RDW Coeff of Iram Plt Count MPV Sodium Potassium Chloride Carbon Dioxide Anion Gap BUN Creatinine Est Cr Clr Drug Dosing Est GFR ( Amer) Est GFR (Non-Af Amer) BUN/Creatinine Ratio Glucose POC Glucose 185 H 188 H 161 H Calcium 06/08/19 20:00 WBC RBC Hgb Hct MCV MCH MCHC RDW Std Deviation RDW Coeff of Iram Plt Count MPV Sodium Potassium Chloride Carbon Dioxide Anion Gap BUN Creatinine Est Cr Clr Drug Dosing Est GFR ( Amer) Est GFR (Non-Af Amer) BUN/Creatinine Ratio Glucose POC Glucose 131 H Calcium PG Care Time/CCT Total # of Minutes Spent Total Time Spent with Patient: Total time spent is greater than 50% in coordination of care (as documented) at patient's floor/unit and/or counseling patient: Coding Level of Care Code 32869 Subseq Hosp Care Lvl 3 Diagnoses Third degree heart block I44.2 Syncope R55 Syncope type: unspecified Hypertension I10 Type 2 diabetes mellitus E11.9 Nonischemic cardiomyopathy I42.8 Nonocclusive coronary atherosclerosis of [place] coronary artery I25.10 Hyperlipidemia E78.5 Acute kidney injury superimposed on chronic kidney disease N17.9; N18.9 Depression F32.9 Primary thrombocytopenia, unspecified D69.49 (1) Syncope Syncope type: unspecified Qualified Code(s): R55 - Syncope and collapse
[2019-06-09] MEDS: PRAZOSIN HCL 1 MG CAP PO SCH ×2 (00:17→19:31)
[2019-06-09 05:46] LABS: Calcium 8.6 mg/dl (8.5-10.1); Creatinine Clr Calc Pharmacy 53.2 ml/min; Est GFR (African American) 60.7; Est GFR (Non-African American) 52.4; Potassium 3.8 mmol/L (3.5-5.1)
[2019-06-09] MEDS: OLANZapine 10 MG TAB PO SCH (07:43)
[2019-06-09] MEDS: INSULIN ASPART 100 UNITS/ML 3 ML PEN SC SCH ×4 (07:43→21:03)
[2019-06-09] MEDS: METOPROLOL TARTRATE 50 MG TAB PO SCH ×2 (07:43→19:30)
[2019-06-09] MEDS: lisinopriL 40 MG TAB PO SCH (08:27)
--- NOTE | 2019-06-09 10:31 | Hospitalist Progress Note ---
Date of Service June 09, 2019 Assessment & Plan (1) Third degree heart block: POD #2 s/p permanent pacemaker placement by Dr Saavedra. device functioning well. appreciate Dr Saavedra's consultation and ongoing assistance. (2) Syncope: likely 2nd to complete heart block. recent weakness also likely 2nd to heart block. if fatigue/weakness persist despite Rx of above will need additional work-up (ischemic w/u, other labs, etc). (3) Hypertension: Ongoing uncontrolled BPs despite lisinopril, metoprolol, and prazosin. required nicardipine infusion again overnight. oddly she was markedly orthostatic this am but these were improved this afternoon. Uncertain why she was transiently orthostatic. the nicardipine drip was stopped and off such her BPs were again markedly elevated. thus I added amlodipine 5mg daily. continue to follow carefully. (4) Type 2 diabetes mellitus: Holding metformin. NovoLog coverage for meals. Controlled. Hb a1c 6.8% in 04/2019. (5) Nonischemic cardiomyopathy: echo - EF 45-50% with wall motion abnormalities. this will need additional work-up in future - defer to cardiology. continues to remain compensated from volume standpoint at this time. (6) Nonocclusive coronary atherosclerosis of [place] coronary artery: 2015 heart cath with mild disease of all 3 major vessels. this easily could be worse 5 years later. cont beta jeovany. cont asa. cont statin. see discussion above re: echo findings. (7) Hyperlipidemia: Continue atorvastatin 20 mg every evening (8) Acute kidney injury superimposed on chronic kidney disease: Creatinine was 2.04 upon admission. CALEB resolved - Cr 1 today. Baseline CrCl c/w CKD stage 3. (9) Depression: Continue bupropion, olanzapine, prazosin and trazodone. (10) Primary thrombocytopenia, unspecified: Continue hydroxyurea Platelets have been normal this entire stay macrocytosis - folate, b12, and TSH wnl 2nd to hydroxyruea ? PT, OT evals completed; cleared for home if BPs are acceptable tomorrow - home then? Admission and Anticipated Discharge Date Admission Date: June 06, 2019 Anticipated date of discharge: 06/10/19 Subjective patient denies any significant headache. through the night she continued with elevated Bps and thus the nicardipine drip was restarted. interestingly she had marked orthostasis this am with a nearly 60-point drop in systolic BP this am. repeat orthostatics this afternoon were negative. she denied any dizziness. no dyspnea. no chest pain. tele - paced. Review of Systems Constitutional: no fever Respiratory: no cough and no dyspnea Cardiovascular: no chest pain Gastrointestinal: no abdominal pain, no nausea, no vomiting and no constipation Physical Exam Constitutional: no acute distress and no altered mental status ENMT: external ear and nose normal, oropharynx normal Respiratory: normal respiratory effort, lungs clear to auscultation Cardiovascular: Rate/Rhythm: regular rate and regular rhythm Heart Sounds: normal S1 and normal S2; no murmur Vessels: posterior tibial pulses present and dorsalis pedis pulses present; no JVD Extremities: no edema Chest (Breasts): Chest: + pacemaker (site - left upper chest - mild swelling and mild ecchymoses - no change) Gastrointestinal (Abdomen): normal bowel sounds, soft, nontender, no hepatosplenomegaly Psychiatric: A+Ox3, euthymic affect Results & Data ([facility]) Vital Signs (Past 12 Hours) Vital Signs Temp Pulse Pulse Resp BP BP BP 06/09/19 10:00 67 20 06/09/19 09:55 68 16 179/94 H 06/09/19 09:30 66 19 06/09/19 09:25 68 16 168/88 H 06/09/19 09:00 70 21 06/09/19 08:55 70 19 188/88 H 06/09/19 08:30 69 16 06/09/19 08:25 70 18 179/119 H 06/09/19 08:00 72 20 06/09/19 07:30 68 17 06/09/19 07:25 70 19 183/90 H 06/09/19 07:11 80 06/09/19 07:09 37.0 C 69 17 06/09/19 07:00 69 25 H 06/09/19 06:55 69 179/82 H 06/09/19 05:55 72 132/50 L 06/09/19 05:25 75 178/94 H 06/09/19 04:55 72 183/92 H 06/09/19 04:25 36.7 C 72 18 173/71 H 06/09/19 03:54 77 188/82 H 06/09/19 03:24 75 183/91 H 06/09/19 02:55 78 165/57 H 06/09/19 02:25 78 159/64 H 06/09/19 01:55 78 181/79 H 06/09/19 01:25 79 150/67 H 06/09/19 01:06 191/99 H 06/09/19 00:25 73 199/77 H 06/08/19 23:59 179/79 H 06/08/19 23:25 37.3 C 85 20 225/76 H 06/08/19 22:50 80 Pulse Ox 06/09/19 10:00 06/09/19 09:55 06/09/19 09:30 06/09/19 09:25 06/09/19 09:00 06/09/19 08:55 06/09/19 08:30 06/09/19 08:25 06/09/19 08:00 06/09/19 07:30 06/09/19 07:25 06/09/19 07:11 06/09/19 07:09 95 06/09/19 07:00 06/09/19 06:55 06/09/19 05:55 06/09/19 05:25 06/09/19 04:55 06/09/19 04:25 93 06/09/19 03:54 06/09/19 03:24 06/09/19 02:55 06/09/19 02:25 06/09/19 01:55 06/09/19 01:25 06/09/19 01:06 06/09/19 00:25 06/08/19 23:59 06/08/19 23:25 95 06/08/19 22:50 Laboratory Results Laboratory Results - last 24 hr 06/08/19 06/08/19 06/08/19 11:12 16:49 20:00 Sodium Potassium Chloride Carbon Dioxide Anion Gap BUN Creatinine Est Cr Clr Drug Dosing Est GFR ( Amer) Est GFR (Non-Af Amer) BUN/Creatinine Ratio Glucose POC Glucose 188 H 161 H 131 H Calcium Folate 06/09/19 06/09/19 06/09/19 04:24 04:24 07:06 Sodium 140 Potassium 3.8 Chloride 109 H Carbon Dioxide 24 Anion Gap 7.0 BUN 21 H Creatinine 1.03 Est Cr Clr Drug Dosing 53.2 Est GFR ( Amer) 60.7 Est GFR (Non-Af Amer) 52.4 BUN/Creatinine Ratio 20.0 Glucose 171 H POC Glucose 170 H Calcium 8.6 Folate 22.88 PG Care Time/CCT Total # of Minutes Spent Total Time Spent with Patient: Total time spent is greater than 50% in coordination of care (as documented) at patient's floor/unit and/or counseling patient: Coding Level of Care Code 73552 Subseq Hosp Care Lvl 2 Diagnoses Third degree heart block I44.2 Syncope R55 Syncope type: unspecified Hypertension I10 Type 2 diabetes mellitus E11.9 Nonischemic cardiomyopathy I42.8 Nonocclusive coronary atherosclerosis of [place] coronary artery I25.10 Hyperlipidemia E78.5 Acute kidney injury superimposed on chronic kidney disease N17.9; N18.9 Depression F32.9 Primary thrombocytopenia, unspecified D69.49 (1) Syncope Syncope type: unspecified Qualified Code(s): R55 - Syncope and collapse
[2019-06-09] MEDS: HYDROXYUREA 500 MG CAP PO SCH (11:02)
[2019-06-09] MEDS: ASPIRIN 81 MG ECTAB PO SCH (11:02)
[2019-06-09] MEDS: BuPROPion SR 150 MG TABCR PO SCH ×2 (11:02→19:31)
[2019-06-09] MEDS ORDERED: AMLODIPINE BESYLATE 5 MG TAB PO ONE (15:15)
--- NOTE | 2019-06-09 16:43 | Cardiology Progress Note ---
Date of Service June 09, 2019 Assessment & Plan (1) Third degree heart block: Wound appears to be healing well. (2) Syncope: Related to heart block. (3) LBBB (left bundle branch block): Currently paced. (4) Nonischemic cardiomyopathy: Overall function appeared fairly good. However with mildly reduced LV function and history of cardiomyopathy biventricular device was implanted. She should continue on her outpatient regimen which includes both metoprolol succinate and lisinopril. (5) Hypertension: Despite reinstitution of her antihypertensive regimen she continues to have significantly elevated blood pressures. No symptoms. I cut her P drip was stopped. Initially she was felt to have some supine hypertension, but later in the day her blood pressures appear to be the same either supine or upright. Her antihypertensive regimen was intensified with the addition of amlodipine. For continued refractory hypertension we could consider addition of minoxidil and or diuretic. Spironolactone could also be employed. Subjective This afternoon the patient claims to be feeling well. She denies any headaches currently. She is lying flat without breathing difficulty. No pain. Review of Systems Review of Systems: Per HPI Physical Exam Physical Exam: She was alert and oriented. She answers questions appropriately Lungs appear clear to auscultation Cardiac examination revealed a regular rhythm with a holosystolic murmur. Chest: Device implant site with some mild ecchymosis but no drainage or hematoma Results & Data Vital Signs (Past 12 Hours) Vital Signs Temp Pulse Pulse Resp BP BP BP 06/09/19 16:00 73 21 06/09/19 15:55 37 C 71 20 200/100 H 06/09/19 15:30 70 19 06/09/19 15:25 71 19 198/82 H 06/09/19 15:00 74 23 06/09/19 14:55 69 17 195/84 H 06/09/19 14:30 66 20 06/09/19 14:25 66 17 203/82 H 06/09/19 14:00 65 13 06/09/19 13:00 63 22 06/09/19 12:55 63 23 184/91 H 06/09/19 12:00 36.8 C 66 21 189/100 H 06/09/19 11:56 69 20 160/140 H 06/09/19 10:38 174/106 H 06/09/19 10:00 67 20 06/09/19 09:55 68 16 179/94 H 06/09/19 09:30 66 19 06/09/19 09:25 68 16 168/88 H 06/09/19 09:00 70 21 06/09/19 08:55 70 19 188/88 H 06/09/19 08:30 69 16 06/09/19 08:25 70 18 179/119 H 06/09/19 08:00 72 20 06/09/19 07:30 68 17 06/09/19 07:25 70 19 183/90 H 06/09/19 07:11 80 06/09/19 07:09 37.0 C 69 17 06/09/19 07:00 69 25 H 06/09/19 06:55 69 179/82 H 06/09/19 05:55 72 132/50 L 06/09/19 05:25 75 178/94 H 06/09/19 04:55 72 183/92 H Pulse Ox 06/09/19 16:00 06/09/19 15:55 98 06/09/19 15:30 06/09/19 15:25 06/09/19 15:00 06/09/19 14:55 06/09/19 14:30 06/09/19 14:25 06/09/19 14:00 06/09/19 13:00 06/09/19 12:55 06/09/19 12:00 99 06/09/19 11:56 06/09/19 10:38 06/09/19 10:00 06/09/19 09:55 06/09/19 09:30 06/09/19 09:25 06/09/19 09:00 06/09/19 08:55 06/09/19 08:30 06/09/19 08:25 06/09/19 08:00 06/09/19 07:30 06/09/19 07:25 06/09/19 07:11 06/09/19 07:09 95 06/09/19 07:00 06/09/19 06:55 06/09/19 05:55 06/09/19 05:25 06/09/19 04:55 Laboratory Results Abnormal Lab Results 06/08/19 06/08/19 06/09/19 16:49 20:00 04:24 Sodium 140 Potassium 3.8 Chloride 109 H Carbon Dioxide 24 Anion Gap 7.0 BUN 21 H Creatinine 1.03 Est Cr Clr Drug Dosing 53.2 Est GFR ( Amer) 60.7 Est GFR (Non-Af Amer) 52.4 BUN/Creatinine Ratio 20.0 Glucose 171 H POC Glucose 161 H 131 H Calcium 8.6 Folate 06/09/19 06/09/19 06/09/19 04:24 07:06 10:59 Sodium Potassium Chloride Carbon Dioxide Anion Gap BUN Creatinine Est Cr Clr Drug Dosing Est GFR ( Amer) Est GFR (Non-Af Amer) BUN/Creatinine Ratio Glucose POC Glucose 170 H 193 H Calcium Folate 22.88 06/09/19 16:05 Sodium Potassium Chloride Carbon Dioxide Anion Gap BUN Creatinine Est Cr Clr Drug Dosing Est GFR ( Amer) Est GFR (Non-Af Amer) BUN/Creatinine Ratio Glucose POC Glucose 121 H Calcium Folate (1) Syncope Syncope type: unspecified Qualified Code(s): R55 - Syncope and collapse
[2019-06-09] MEDS: HydrALAZINE HCL 20 MG/ML VIAL IV PRN (19:26)
[2019-06-09] MEDS: ATORVASTATIN 20 MG TAB PO SCH (19:30)
[2019-06-10 04:26] LABS: Hematocrit (blood only) 35.9 % (37-47); Hemoglobin 11.9 g/dL (12.0-16.0); Mean Corpuscular Hemoglobin 40.2 pg (25-34); Mean Corpuscular Hgb Conc 33.1 g/dL (32-36); Mean Corpuscular Volume 121.3 fL (80-100); Mean Platelet Volume 9.6 fL (7.4-10.4); Platelet Count 179 K/uL (130-400); RDW Coefficient of Variation 13.8 % (11.5-14.5); RDW Standard Deviation 60.8 fL (36.4-46.3); Red Blood Count 2.96 M/uL (4.2-5.4); White Blood Count 6.62 K/uL (4.8-10.8)
[2019-06-10] MEDS: INSULIN ASPART 100 UNITS/ML 3 ML PEN SC SCH ×4 (08:14→21:08)
[2019-06-10] MEDS: AMLODIPINE BESYLATE 5 MG TAB PO SCH (08:15)
[2019-06-10] MEDS: HYDROXYUREA 500 MG CAP PO SCH (08:15)
[2019-06-10] MEDS: METOPROLOL TARTRATE 50 MG TAB PO SCH ×2 (08:15→21:10)
[2019-06-10] MEDS: OLANZapine 10 MG TAB PO SCH (08:15)
[2019-06-10] MEDS: BuPROPion SR 150 MG TABCR PO SCH ×2 (08:15→21:11)
[2019-06-10] MEDS: lisinopriL 40 MG TAB PO SCH (08:15)
[2019-06-10] MEDS: ASPIRIN 81 MG ECTAB PO SCH (08:16)
[2019-06-10] MEDS: SPIRONOLACTONE 25 MG TAB PO SCH (09:11)
--- NOTE | 2019-06-10 15:51 | Ultrasound Report ---
US duplex renal artery HISTORY: 79 years-old Female malignant HTN acute hypertension COMPARISON: CTA 04/11/2013 TECHNIQUE: Multiple real-time sonographic images of the bilateral kidney vascular structures were obt ained assessing grayscale appearance, color and spectral flow FINDINGS: The right kidney measures 9.0 cm in length. Patent right renal vein. Peak systolic velocity within th e arcuate branches of the renal artery measure up to 20.0 cm/s. Peak systolic velocities within the r ight renal artery measure up to 126 cm/s. Resistive index measures up to 0.88. The left kidney measures 10.3 cm in length. Patent left renal vein.. Peak systolic velocity within th e arcuate branches of the left kidney measure up to 39.5 cm/s. Peak velocities within the left renal artery measure up to 137.2 cm/s. Resistive index measures up to 0.83. Normal plug flow within the aorta, peak systolic velocity measuring up to 119 cm/s. IMPRESSION: No evidence of renal artery stenosis. ACT 112: Negative or not required by law. The above report was generated using voice recognition software. It may contain grammatical, syntax o r spelling errors. Electronically signed by: Jose Sarabia M.D. 06/10/2019 3:50 PM
--- NOTE | 2019-06-10 17:09 | Cardiology Progress Note ---
Date of Service June 10, 2019 Assessment & Plan (1) Third degree heart block: Wound appears to be healing well. (2) Syncope: Related to heart block. (3) LBBB (left bundle branch block): Currently paced. (4) Nonischemic cardiomyopathy: Overall function appeared fairly good. However with mildly reduced LV function and history of cardiomyopathy biventricular device was implanted. She should continue on her outpatient regimen which includes both metoprolol succinate and lisinopril. (5) Hypertension: Renal artery duplex did not reveal any evidence of stenosis. Blood pressures appear to be improved this afternoon. She did receive amlodipine and spironolactone this morning. Hopefully with the addition his medication will see some sustained improvement. Curiously, she was up in a chair most of the afternoon. There has been some concern about an orthostatic component to her blood pressure readings. Continue to monitor overnight. Hopefully discharge tomorrow. Admission and Anticipated Discharge Date Admission Date: June 06, 2019 Anticipated date of discharge: 06/10/19 Subjective This afternoon the patient claims to be feeling well. She denies any headache or chest pain. She denies any dizziness or lightheadedness. No pain at the device implant site. Review of Systems Review of Systems: Per HPI Physical Exam Physical Exam: She was alert and oriented. She answers questions appropriately Lungs appear clear to auscultation Cardiac examination revealed a regular rhythm with a holosystolic murmur. Chest: Device implant site with some mild ecchymosis but no drainage or hematoma Results & Data ([facility]) Vital Signs (Past 12 Hours) Vital Signs Temp Pulse Pulse Resp BP BP BP 06/10/19 14:01 60 144/64 H 06/10/19 13:03 60 154/72 H 06/10/19 13:00 60 154/72 H 06/10/19 12:00 60 131/51 L 06/10/19 11:12 37.0 C 60 22 150/49 H 06/10/19 11:00 60 138/50 L 06/10/19 10:00 60 187/57 H 06/10/19 09:00 66 172/56 H 06/10/19 08:00 64 162/63 H 06/10/19 07:45 36.8 C 70 20 174/65 H 06/10/19 06:00 73 18 168/55 H 06/10/19 05:41 72 14 159/57 H Pulse Ox 06/10/19 14:01 06/10/19 13:03 06/10/19 13:00 06/10/19 12:00 06/10/19 11:12 96 06/10/19 11:00 06/10/19 10:00 06/10/19 09:00 06/10/19 08:00 06/10/19 07:45 95 06/10/19 06:00 06/10/19 05:41 Laboratory Results Abnormal Lab Results 06/09/19 06/10/19 06/10/19 20:56 04:14 07:21 WBC 6.62 RBC 2.96 L Hgb 11.9 L Hct 35.9 L MCV 121.3 H MCH 40.2 H MCHC 33.1 RDW Std Deviation 60.8 H RDW Coeff of Iram 13.8 Plt Count 179 MPV 9.6 POC Glucose 142 H 174 H 06/10/19 06/10/19 11:14 16:19 WBC RBC Hgb Hct MCV MCH MCHC RDW Std Deviation RDW Coeff of [place] Plt Count MPV POC Glucose 146 H 172 H PG Care Time/CCT Total # of Minutes Spent Total Time Spent with Patient: Total time spent is greater than 50% in coordination of care (as documented) at patient's floor/unit and/or counseling patient: Coding Level of Care Code 40156 Post Operative Follow-Up Diagnoses Third degree heart block I44.2 Syncope R55 Syncope type: unspecified LBBB (left bundle branch block) I44.7 Nonischemic cardiomyopathy I42.8 Hypertension I10 (1) Syncope Syncope type: unspecified Qualified Code(s): R55 - Syncope and collapse
--- NOTE | 2019-06-10 19:57 | Hospitalist Progress Note ---
Date of Service June 10, 2019 Assessment & Plan (1) Hypertension: Refractory HTN (hypertensive urgency) despite amlodipine, lisinopril, metoprolol, and prazosin. Again required nicardipine infusion overnight. Will add aldactone. If BPs remain controlled as day goes on then cut nicardipine drip to 2.5mg/hr. Then, ultimately, stop the drip. Send renin/wyatt levels - r/o hyperaldosteronism. Check renal artery dopplers - r/o renal artery stenosis. Consider outpatient sleep study - r/o ABDIRAHMAN. I discussed the pt's case with Dr Saavedra. We are suspicious that patient has baseline, severely uncontrolled HTN. (2) Third degree heart block: POD #3 s/p permanent pacemaker placement by Dr Saavedra. device functioning well. continues to be paced on telemetry. appreciate Dr Saavedra's consultation and ongoing assistance. (3) Syncope: likely 2nd to complete heart block. recent weakness also likely 2nd to heart block. if fatigue/weakness persist despite Rx of above will need additional work-up. (4) Type 2 diabetes mellitus: Holding metformin. NovoLog coverage for meals. Controlled. Hb a1c 6.8% in 04/2019. (5) Nonischemic cardiomyopathy: echo - EF 45-50% with wall motion abnormalities. this will need additional work-up in future - defer to cardiology. continues to remain compensated from volume standpoint at this time. (6) Nonocclusive coronary atherosclerosis of [place] coronary artery: 2015 heart cath with mild disease of all 3 major vessels. this easily could be worse 5 years later. cont beta jeovany. cont asa. cont statin. see discussion above re: echo findings. (7) Hyperlipidemia: Continue atorvastatin 20 mg every evening (8) Acute kidney injury superimposed on chronic kidney disease: Creatinine was 2.04 upon admission. CALEB resolved. repeat BMP am. (9) Depression: Continue bupropion, olanzapine, prazosin and trazodone. (10) Primary thrombocytopenia, unspecified: Continue hydroxyurea Platelets have been normal this entire stay macrocytosis - folate, b12, and TSH wnl 2nd to hydroxyruea ? PT, OT evals completed; cleared for home Admission and Anticipated Discharge Date Admission Date: June 06, 2019 Subjective no complaints this am during rounds. rested well last pm. had mild frontal headache when BP spiked to over 200 necessitating resumption of nicardipine drip at 5mg/hr last pm. no cp. no dyspnea. no fatigue. Review of Systems Constitutional: no fever Respiratory: no cough, no dyspnea and no dyspnea on exertion Cardiovascular: no chest pain Gastrointestinal: no abdominal pain Physical Exam Constitutional: no acute distress and no altered mental status ENMT: external ear and nose normal, oropharynx normal Respiratory: normal respiratory effort, lungs clear to auscultation Cardiovascular: Rate/Rhythm: regular rate and regular rhythm Heart Sounds: normal S1 and normal S2; no murmur Vessels: posterior tibial pulses present and dorsalis pedis pulses present; no JVD Extremities: no edema Chest (Breasts): Chest: + pacemaker (site - left upper chest - minimal swelling; minimal ecchymoses) Gastrointestinal (Abdomen): normal bowel sounds, soft, nontender, no hepatosplenomegaly Psychiatric: A+Ox3, euthymic affect Results & Data ([facility]) Vital Signs (Past 12 Hours) Vital Signs Temp Pulse Resp BP BP Pulse Ox 06/10/19 19:30 36.9 C 67 20 162/56 H 96 06/10/19 14:01 60 144/64 H 06/10/19 13:03 60 154/72 H 06/10/19 13:00 60 154/72 H 06/10/19 12:00 60 131/51 L 06/10/19 11:12 37.0 C 60 22 150/49 H 96 06/10/19 11:00 60 138/50 L 06/10/19 10:00 60 187/57 H 06/10/19 09:00 66 172/56 H 06/10/19 08:00 64 162/63 H Laboratory Results Laboratory Results - last 24 hr 06/09/19 06/10/19 06/10/19 20:56 04:14 07:21 WBC 6.62 RBC 2.96 L Hgb 11.9 L Hct 35.9 L MCV 121.3 H MCH 40.2 H MCHC 33.1 RDW Std Deviation 60.8 H RDW Coeff of Iram 13.8 Plt Count 179 MPV 9.6 POC Glucose 142 H 174 H Renin Activity Aldosterone 06/10/19 06/10/19 06/10/19 08:22 11:14 16:19 WBC RBC Hgb Hct MCV MCH MCHC RDW Std Deviation RDW Coeff of Iram Plt Count MPV POC Glucose 146 H 172 H Renin Activity Pending Aldosterone Pending PG Care Time/CCT Total # of Minutes Spent Total Time Spent with Patient: Total time spent is greater than 50% in coordination of care (as documented) at patient's floor/unit and/or counseling patient: Coding Level of Care Code 17857 Subseq Hosp Care Lvl 3 Diagnoses Hypertension I10 Hypertension type: essential hypertension Third degree heart block I44.2 Syncope R55 Syncope type: unspecified Type 2 diabetes mellitus E11.9 Nonischemic cardiomyopathy I42.8 Nonocclusive coronary atherosclerosis of [place] coronary artery I25.10 Hyperlipidemia E78.5 Acute kidney injury superimposed on chronic kidney disease N17.9; N18.9 Depression F32.9 Primary thrombocytopenia, unspecified D69.49 (1) Syncope Syncope type: unspecified Qualified Code(s): R55 - Syncope and collapse (2) Hypertension Hypertension type: essential hypertension Qualified Code(s): I10 - Essential (primary) hypertension
[2019-06-10] MEDS: ATORVASTATIN 20 MG TAB PO SCH (21:11)
[2019-06-10] MEDS: PRAZOSIN HCL 1 MG CAP PO SCH (21:12)
[2019-06-11] MEDS: OLANZapine 10 MG TAB PO SCH (07:52)
[2019-06-11] MEDS: AMLODIPINE BESYLATE 5 MG TAB PO SCH (07:52)
[2019-06-11] MEDS: SPIRONOLACTONE 25 MG TAB PO SCH (07:52)
[2019-06-11] MEDS: HYDROXYUREA 500 MG CAP PO SCH (07:52)
[2019-06-11] MEDS: lisinopriL 40 MG TAB PO SCH (07:52)
[2019-06-11] MEDS: ASPIRIN 81 MG ECTAB PO SCH (07:52)
[2019-06-11] MEDS: METOPROLOL TARTRATE 50 MG TAB PO SCH (07:53)
[2019-06-11] MEDS: BuPROPion SR 150 MG TABCR PO SCH ×2 (07:53→20:40)
[2019-06-11] MEDS: INSULIN ASPART 100 UNITS/ML 3 ML PEN SC SCH ×4 (07:54→20:44)
[2019-06-11 07:59] LABS: BUN Creatinine Ratio 25.4 (10-20); Calcium 9.1 mg/dl (8.5-10.1); Creatinine Clr Calc Pharmacy 63.7 ml/min; Est GFR (African American) 76.6; Est GFR (Non-African American) 66.1; Potassium 3.9 mmol/L (3.5-5.1)
--- NOTE | 2019-06-11 19:51 | Hospitalist Progress Note ---
Date of Service June 11, 2019 Assessment & Plan (1) Hypertension: Previous hypertensive urgency/emergency requiring nicardipine infusion intermittently. Now on amlodipine, lisinopril, metoprolol, prazosin and aldactone. Nicardipine drip cut in 1/2 last pm, and was stopped completely this am. Send renin/wyatt levels - r/o hyperaldosteronism. Checked renal artery dopplers - no evidence of renal artery stenosis. Consider repeat outpatient sleep study - has known dx of ABDIRAHMAN but doesn't use CPAP (was dx several years ago). I discussed the pt's case with Dr Saavedra yesterday. We are suspicious that patient has baseline, severely uncontrolled HTN. If BPs cont to be high then stop metoprolol and use coreg in tad. (2) Third degree heart block: POD #4 s/p permanent pacemaker placement by Dr Saavedra. device functioning well. continues to be paced on telemetry. appreciate Dr Saavedra's consultation. (3) Syncope: likely 2nd to complete heart block. recent weakness also likely 2nd to heart block. if fatigue/weakness persist despite Rx of above will need additional work-up. (4) Type 2 diabetes mellitus: Holding metformin. NovoLog coverage for meals. Controlled. Hb a1c 6.8% in 04/2019. (5) Nonischemic cardiomyopathy: echo - EF 45-50% with wall motion abnormalities. this will need additional work-up in future - defer to cardiology. continues to remain compensated from volume standpoint at this time. control the BPs. (6) Nonocclusive coronary atherosclerosis of [place] coronary artery: 2015 heart cath with mild disease of all 3 major vessels. this easily could be worse 5 years later. cont beta jeovany. cont asa. cont statin. see discussion above re: echo findings. (7) Hyperlipidemia: Continue atorvastatin 20 mg every evening (8) Acute kidney injury superimposed on chronic kidney disease: Creatinine was 2.04 upon admission. CALEB resolved. repeat Cr today 0.8. (9) Depression: Continue bupropion, olanzapine, prazosin and trazodone. (10) Primary thrombocytopenia, unspecified: Continue hydroxyurea Platelets have been normal this entire stay macrocytosis - folate, b12, and TSH wnl 2nd to hydroxyruea ? (11) DVT prophylaxis: add lovenox 40mg daily left message for 06/11/19 hopefully can d/c home tomorrow if BPs are reasonable ambulate today to prepare for d/c home has been cleared by PT/OT for home previously but consider re-consult tomorrow to ensure safe d/c still Admission and Anticipated Discharge Date Admission Date: June 06, 2019 Anticipated date of discharge: 06/12/19 Subjective patient w/o complaints no cp, dyspnea, orthopnea, PND, fatigue/weakness eating well moving her bowels tele normal nicardipine drip weaned overnight; BPs controlled Review of Systems Constitutional: no fever, no chills, no fatigue and no anorexia Respiratory: no cough and no dyspnea Gastrointestinal: no abdominal pain Neurologic: no localized weakness, no generalized weakness, no dizziness and no headache(s) Physical Exam Constitutional: no acute distress and no altered mental status upon entering room she was sleeping and snoring; woke easily; looks good overall ENMT: external ear and nose normal, oropharynx normal Respiratory: normal respiratory effort, lungs clear to auscultation Cardiovascular: Rate/Rhythm: regular rate and regular rhythm Heart Sounds: normal S1 and normal S2; no murmur Vessels: posterior tibial pulses present and dorsalis pedis pulses present; no JVD Extremities: no edema Chest (Breasts): Chest: + pacemaker (site - left upper chest - minimal swelling; minimal ecchymoses) Gastrointestinal (Abdomen): normal bowel sounds, soft, nontender, no hepatosplenomegaly Psychiatric: A+Ox3, euthymic affect Results & Data ([facility]) Vital Signs (Past 12 Hours) Vital Signs Temp Pulse Resp BP BP Pulse Ox 06/11/19 19:01 37.0 C 65 22 191/66 H 98 06/11/19 15:15 36.8 C 60 18 157/82 H 99 06/11/19 11:46 36.8 C 64 20 177/66 H 96 06/11/19 07:56 36.7 C 63 23 146/52 H 96 Laboratory Results Laboratory Results - last 24 hr 06/10/19 06/11/19 06/11/19 20:17 06:29 07:21 Sodium 142 Potassium 3.9 Chloride 111 H Carbon Dioxide 24 Anion Gap 7.0 BUN 22 H Creatinine 0.85 Est Cr Clr Drug Dosing 63.7 Est GFR ( Amer) 76.6 Est GFR (Non-Af Amer) 66.1 BUN/Creatinine Ratio 25.4 H Glucose 145 H POC Glucose 129 H 163 H Calcium 9.1 06/11/19 06/11/19 11:11 16:06 Sodium Potassium Chloride Carbon Dioxide Anion Gap BUN Creatinine Est Cr Clr Drug Dosing Est GFR ( Amer) Est GFR (Non-Af Amer) BUN/Creatinine Ratio Glucose POC Glucose 169 H 149 H Calcium PG Care Time/CCT Total # of Minutes Spent Total Time Spent with Patient: Total time spent is greater than 50% in coordination of care (as documented) at patient's floor/unit and/or counseling patient: Coding Level of Care Code 84720 Subseq Hosp Care Lvl 3 Diagnoses Hypertension I10 Hypertension type: essential hypertension Third degree heart block I44.2 Syncope R55 Syncope type: unspecified Type 2 diabetes mellitus E11.9 Nonischemic cardiomyopathy I42.8 Nonocclusive coronary atherosclerosis of [place] coronary artery I25.10 Hyperlipidemia E78.5 Acute kidney injury superimposed on chronic kidney disease N17.9; N18.9 Depression F32.9 Primary thrombocytopenia, unspecified D69.49 DVT prophylaxis Z29.9 (1) Hypertension Hypertension type: essential hypertension Qualified Code(s): I10 - Essential (primary) hypertension (2) Syncope Syncope type: unspecified Qualified Code(s): R55 - Syncope and collapse
[2019-06-11] MEDS ORDERED: ENOXAPARIN INJ 40 MG/0.4 ML SYR SQ ONE (19:56)
[2019-06-11] MEDS: ATORVASTATIN 20 MG TAB PO SCH (20:41)
[2019-06-11] MEDS: PRAZOSIN HCL 1 MG CAP PO SCH (20:41)
[2019-06-11] MEDS ORDERED: carvediloL 12.5 MG TAB PO SCH (21:00)
[2019-06-12] MEDS: HydrALAZINE HCL 20 MG/ML VIAL IV PRN (03:58)
[2019-06-12 07:40] LABS: BUN Creatinine Ratio 23.1 (10-20); Creatinine Clr Calc Pharmacy 57.7 ml/min; Est GFR (African American) 69.6; Est GFR (Non-African American) 60.1; Potassium 3.8 mmol/L (3.5-5.1)
[2019-06-12] MEDS: lisinopriL 40 MG TAB PO SCH (08:01)
[2019-06-12] MEDS: INSULIN ASPART 100 UNITS/ML 3 ML PEN SC SCH ×4 (08:01→20:43)
[2019-06-12] MEDS: AMLODIPINE BESYLATE 5 MG TAB PO SCH (08:01)
[2019-06-12] MEDS: BuPROPion SR 150 MG TABCR PO SCH ×2 (08:02→20:42)
[2019-06-12] MEDS: OLANZapine 10 MG TAB PO SCH (08:02)
[2019-06-12] MEDS: ASPIRIN 81 MG ECTAB PO SCH (08:02)
[2019-06-12] MEDS: SPIRONOLACTONE 25 MG TAB PO SCH (08:02)
[2019-06-12] MEDS: HYDROXYUREA 500 MG CAP PO SCH (08:02)
[2019-06-12] MEDS: carvediloL 25 MG TAB PO SCH ×2 (08:19→20:42)
[2019-06-12] MEDS ORDERED: AMLODIPINE BESYLATE 5 MG TAB PO ONE (11:19)
--- NOTE | 2019-06-12 11:19 | Cardiology Progress Note ---
Date of Service June 12, 2019 Subjective I was asked by Dr. Fleming to us to see the patient today given her ongoing and difficult to control hypertension. She has any chest pain just pressure chest heaviness. She has any shortness of breath. She denies any lightheadedness or dizziness. She denies any headaches or double vision or blurry vision. She denies any further syncopal episodes. She has been walking to the bathroom and feels okay with them. Results & Data Vital Signs (Past 12 Hours) Vital Signs Temp Pulse Resp BP Pulse Ox 06/12/19 07:16 36.5 C 72 22 193/75 H 96 06/12/19 06:00 188/69 H 06/12/19 03:56 36.9 C 74 16 196/81 H 95 06/11/19 23:19 37.0 C 66 18 175/75 H 96 She is awake alert and oriented x3 in no acute distress HEENT mildly reduced carotid upstrokes no evidence of carotid bruits jugular venous pressure appeared normal her sclerae anicteric Lungs: Clear to auscultation bilaterally no rales rhonchi wheezing Heart: Regular rate and rhythm no appreciable murmurs or rubs or gallops Abdomen: Soft nontender distended positive bowel sounds Extremities: No clubbing cyanosis or edema Assessment & Plan (1) Third degree heart block: Status post dual-chamber pacemaker; currently atrially sensed and ventricularly paced; no arrhythmia on the monitor (2) Syncope: Related to heart block. (3) LBBB (left bundle branch block): (4) Nonischemic cardiomyopathy: Likely secondary to accelerated hypertension. (5) Hypertension: Renal artery duplex did not reveal any evidence of stenosis. She remains very hypertensive. I would increase her amlodipine to 10 mg daily. I would add hydralazine 10 mg 3 times daily and uptitrate as her blood pressure allows She is known to have significant obstructive sleep apnea. In all likelihood her blood pressure will not be controlled without treatment of her sleep apnea. She notes at home she just did not tolerate the mask as air was leaking around it. It is not like she was claustrophobic. We discussed that nasal pillows would be a good option for her as an outpatient. Unfortunately the hospital does not have nasal pillows. Tonight I would try the mask with a good fit and see if she tolerates it overnight if her pressures improve as they should then she is willing to try nasal pillows as an outpatient. She has significant fatigue and some shortness of breath and fogginess in her head all symptoms that are consistent with sleep apnea.
[2019-06-12] MEDS: HydrALAZINE 10 MG TAB PO SCH ×2 (13:59→20:41)
[2019-06-12] MEDS: ATORVASTATIN 20 MG TAB PO SCH (20:42)
[2019-06-12] MEDS: PRAZOSIN HCL 1 MG CAP PO SCH (20:43)
--- NOTE | 2019-06-12 21:46 | Hospitalist Progress Note ---
Date of Service June 12, 2019 Assessment & Plan (1) Hypertension: Previous hypertensive urgency/emergency requiring nicardipine infusion intermittently. Now on amlodipine, lisinopril, metoprolol, prazosin and aldactone. Despite this complex regimen she has had highly resistant HTN. Sent renin/wyatt levels - r/o hyperaldosteronism. Checked renal artery dopplers - no evidence of renal artery stenosis. Needs repeat outpatient sleep study - has known dx of ABDIRAHMAN but doesn't use CPAP (was dx 2009). I exchanged coreg for metoprolol. Now on coreg 25mg BID. Coreg with stronger BP control than metoprolol. Dr Wilkinson today increased her norvasc and added hydralazine as well. Agree w/ trial of CPAP tonight as well to control her ABDIRAHMAN. Reassess tomorrow. (2) Third degree heart block: POD #5 s/p permanent pacemaker placement by Dr Saavedra. device functioning well. continues to be paced on telemetry. appreciate Dr Saavedra's consultation. (3) Syncope: likely 2nd to complete heart block. recent weakness also likely 2nd to heart block. (4) Type 2 diabetes mellitus: Holding metformin. NovoLog coverage for meals. Control adequate. Hb a1c 6.8% in 04/2019. (5) Nonischemic cardiomyopathy: echo - EF 45-50% with wall motion abnormalities. this will need additional work-up in future - defer to cardiology. continues to remain compensated from volume standpoint at this time even despite poorly controlled BPs. (6) Nonocclusive coronary atherosclerosis of [place] coronary artery: 2015 heart cath with mild disease of all 3 major vessels. this easily could be worse 5 years later. cont beta jeovany. cont asa. cont statin. see discussion above re: echo findings. (7) Hyperlipidemia: Continue atorvastatin 20 mg every evening (8) Acute kidney injury superimposed on chronic kidney disease: Creatinine was 2.04 upon admission. CALEB resolved. Creatinine continues to remain stable. (9) Depression: Continue bupropion, olanzapine, prazosin and trazodone. (10) Primary thrombocytopenia, unspecified: Continue hydroxyurea Platelets have been normal this entire stay macrocytosis - folate, b12, and TSH wnl 2nd to hydroxyruea ? (11) ABDIRAHMAN (obstructive sleep apnea): [address] had sleep study by Dr Black. CPAP [id number] was recommended. She has been noncompliant for many years with this. Untreated ABDIRAHMAN likely contributing to resistant HTN. I agree w/ Dr Wilkinson - start CPAP tonight with 14cm H20. Of note - patient had severe RLS/PLM on that study. Needs Fe studies at some point. Would also recommend a repeat study as the 14cm H20 pressure setting may not be what she needs given the last study was 10 years ago. (12) DVT prophylaxis: lovenox 40mg daily left message for 06/11/19 discharge is contingent on BP control ambulate today to prepare for d/c home has been cleared by PT/OT for home previously; staff report she walks well Admission and Anticipated Discharge Date Admission Date: June 06, 2019 Anticipated date of discharge: 06/13/19 Subjective pt feels good. slept decently last pm. good appetite. no headaches. has remained off nicardipine drip now for 24+ hours but systolic BPs still very high. Review of Systems Constitutional: no fever, no chills, no fatigue and no anorexia Respiratory: no cough and no dyspnea Cardiovascular: no chest pain, no orthopnea and no paroxysmal nocturnal dyspnea Gastrointestinal: + diarrhea/loose stools (1 episode this am ) Physical Exam Constitutional: no acute distress and no altered mental status ENMT: external ear and nose normal, oropharynx normal Respiratory: normal respiratory effort, lungs clear to auscultation Cardiovascular: Rate/Rhythm: regular rate and regular rhythm Heart Sounds: normal S1 and normal S2; no murmur Vessels: posterior tibial pulses present and dorsalis pedis pulses present; no JVD Extremities: no edema Chest (Breasts): Chest: + pacemaker (site - left upper chest - resolving ecchymoses; incision clean ) Gastrointestinal (Abdomen): normal bowel sounds, soft, nontender, no hepatosplenomegaly Psychiatric: A+Ox3, euthymic affect Results & Data ([facility]) Vital Signs (Past 12 Hours) Vital Signs Temp Pulse Resp BP Pulse Ox 06/12/19 19:13 36.9 C 79 18 182/68 H 97 06/12/19 15:10 36.7 C 72 22 185/60 H 100 06/12/19 11:48 37.0 C 75 22 185/89 H 96 Laboratory Results Laboratory Results - last 24 hr 06/12/19 06/12/19 06/12/19 06:26 07:14 11:24 Sodium 140 Potassium 3.8 Chloride 110 H Carbon Dioxide 26 Anion Gap 4.0 BUN 21 H Creatinine 0.92 Est Cr Clr Drug Dosing 57.7 Est GFR ( Amer) 69.6 Est GFR (Non-Af Amer) 60.1 BUN/Creatinine Ratio 23.1 H Glucose 129 H POC Glucose 123 H 152 H Calcium 9.0 06/12/19 06/12/19 16:13 20:26 Sodium Potassium Chloride Carbon Dioxide Anion Gap BUN Creatinine Est Cr Clr Drug Dosing Est GFR ( Amer) Est GFR (Non-Af Amer) BUN/Creatinine Ratio Glucose POC Glucose 110 H 153 H Calcium PG Care Time/CCT Total # of Minutes Spent Total Time Spent with Patient: Total time spent is greater than 50% in coordination of care (as documented) at patient's floor/unit and/or counseling patient: Coding Level of Care Code 80207 Subseq Hosp Care Lvl 2 Diagnoses Hypertension I10 Hypertension type: essential hypertension Third degree heart block I44.2 Syncope R55 Syncope type: unspecified Type 2 diabetes mellitus E11.9 Nonischemic cardiomyopathy I42.8 Nonocclusive coronary atherosclerosis of [place] coronary artery I25.10 Hyperlipidemia E78.5 Acute kidney injury superimposed on chronic kidney disease N17.9; N18.9 Depression F32.9 Primary thrombocytopenia, unspecified D69.49 ABDIRAHMAN (obstructive sleep apnea) G47.33 DVT prophylaxis Z29.9 (1) Hypertension Hypertension type: essential hypertension Qualified Code(s): I10 - Essential (primary) hypertension (2) Syncope Syncope type: unspecified Qualified Code(s): R55 - Syncope and collapse
[2019-06-13 05:58] LABS: Hematocrit (blood only) 36.6 % (37-47); Hemoglobin 12.6 g/dL (12.0-16.0); Mean Corpuscular Hemoglobin 41.3 pg (25-34); Mean Corpuscular Hgb Conc 34.4 g/dL (32-36); Mean Platelet Volume 10.3 fL (7.4-10.4); Platelet Count 191 K/uL (130-400); RDW Coefficient of Variation 13.1 % (11.5-14.5); RDW Standard Deviation 56.8 fL (36.4-46.3); Red Blood Count 3.05 M/uL (4.2-5.4)
[2019-06-13 06:31] LABS: Est GFR (African American) 62.9; Potassium 4.1 mmol/L (3.5-5.1)
[2019-06-13 06:32] LABS: BUN Creatinine Ratio 23.6 (10-20); Calcium 9.6 mg/dl (8.5-10.1); Creatinine Clr Calc Pharmacy 52.6 ml/min; Est GFR (Non-African American) 54.3
[2019-06-13] MEDS: SPIRONOLACTONE 25 MG TAB PO SCH (08:34)
[2019-06-13] MEDS: INSULIN ASPART 100 UNITS/ML 3 ML PEN SC SCH (08:34)
[2019-06-13] MEDS: HydrALAZINE 10 MG TAB PO SCH (08:34)
[2019-06-13] MEDS: HYDROXYUREA 500 MG CAP PO SCH (08:35)
[2019-06-13] MEDS: carvediloL 25 MG TAB PO SCH (08:35)
[2019-06-13] MEDS: BuPROPion SR 150 MG TABCR PO SCH (08:35)
[2019-06-13] MEDS: ASPIRIN 81 MG ECTAB PO SCH (08:35)
[2019-06-13] MEDS: OLANZapine 10 MG TAB PO SCH (08:35)
[2019-06-13] MEDS: lisinopriL 40 MG TAB PO SCH (08:35)
[2019-06-13] MEDS ORDERED: AMLODIPINE BESYLATE 5 MG TAB PO SCH (09:00)
[2019-06-13] MEDS ORDERED: ENOXAPARIN INJ 40 MG/0.4 ML SYR SQ SCH (09:00)
--- NOTE | 2019-06-13 10:22 | Discharge Summary ---
Date of Service June 13, 2019 Admission HPI Per Admitting Provider The patient is a 79-year-old female with a past medical history including renal calculus, diabetes mellitus type 2, CKD stage III, hypertension, nonischemic cardiomyopathy, nonocclusive CAD and primary thrombocytopenia. She reports over the past several weeks she has had episodes where she has had to rest more frequently than usual with doing routine activities due to severe fatigue and shortness of breath. Today however she almost passed out doing routine activities, which prompted her visit to the emergency department today. In the emergency department, the patient was found to be in complete heart block, ca rdiology was consulted over the phone and because of stable blood pressures patient has been recommended for admission to the Hospitalist Service and will consult cardiology in a.m. for probable pacer. Principal Diagnosis 3rd degree heart block, s/p pacemaker Discharge Exam Constitutional WD/WN, vitals as above Eyes PERRL, conjunctivae normal, anicteric sclerae ENMT external ear and nose normal, oropharynx normal Neck trachea midline, no thyromegaly Respiratory normal respiratory effort, lungs clear to auscultation Cardiovascular RRR, no murmur, no edema Gastrointestinal (Abdomen) normal bowel sounds, soft, nontender, no hepatosplenomegaly Musculoskeletal no cyanosis or clubbing, extremities motor strength 5/5 Skin no rashes, warm and dry Neurologic patellar DTR's 2+ bilat, sensation intact and PERRL, EOMI, accommodation nl, no face palsy, no dysarthria Psychiatric A+Ox3, euthymic affect Lymphatic no cervical or axillary lymphadenopathy Discharge Data Allergies Allergy/AdvReac Type Severity Reaction Status Date / Time No Known Allergies Allergy Verified 05/11/19 08:49 Consultations 06/06/19 22:28 ED Decision to Admit Stat 06/07/19 00:26 Consult Cardiology Routine Consult Case Management - Discharge Planning Routine Procedures Performed Operation Date: 06/07/19 15:00 Actual Procedures p Pacer with A/V Leads (Dual) - Garo Saavedra MD s Upgrade of any system to BIV - Garo Saavedra MD Ordered Studies 06/07/19 15:14 CL Cath Imgs for PACS use only Routine 06/10/19 14:00 US duplex renal artery Routine Hospital Course (1) Hypertension: Previous hypertensive urgency/emergency requiring nicardipine infusion intermittently. Now on amlodipine 10mg, lisinopril 40mg, Coreg 25mg BID, prazosin and aldactone 25mg. Hydralazine 10mg TID added by cardiology blood pressure better on day of discharge, 140's systolic in morning and lunch time likely benefited from using CPAP encouraged her to continue to use CPAP at home, CM will work on getting her nasal pillow to promote compliance Sent renin/wyatt levels - r/o hyperaldosteronism these are still pending at time of discharge Checked renal artery dopplers - no evidence of renal artery stenosis. Needs repeat outpatient sleep study - has known dx of ABDIRAHMAN but doesn't use CPAP (was dx 2009). in summary, will discharge on amlodipine, lisinopril, Coreg, prazosin, Aldactone, Hydralazine follow up this week with PCP for blood pressure check low sodium diet recommended ideally should be set up with CPAP with nasal pillows but this may require repeat outpatient sleep study (2) Third degree heart block: POD #6 s/p permanent pacemaker placement by Dr Saavedra. device functioning well. continues to be paced on telemetry. keep wound dry for two more days, will follow up in one month with Dr. Saavedra (3) Syncope: likely 2nd to complete heart block. recent weakness also likely 2nd to heart block. ambulating in the room, no syncope since admission (4) Type 2 diabetes mellitus: resume metformin on discharge NovoLog coverage for meals. Control adequate. Hb a1c 6.8% in 04/2019. (5) Nonischemic cardiomyopathy: echo - EF 45-50% with wall motion abnormalities. this will need additional work-up in future - defer to cardiology. continues to remain compensated from volume standpoint (6) Nonocclusive coronary atherosclerosis of [place] coronary artery: 2015 heart cath with mild disease of all 3 major vessels. this easily could be worse 5 years later. cont beta jeovany. cont asa. cont statin. see discussion above re: echo findings. (7) Hyperlipidemia: Continue atorvastatin 20 mg every evening (8) Acute kidney injury superimposed on chronic kidney disease: Creatinine was 2.04 upon admission. CALEB resolved. Creatinine continues to remain stable. (9) Depression: Continue bupropion, olanzapine, prazosin and trazodone. (10) Primary thrombocytopenia, unspecified: Continue hydroxyurea Platelets have been normal this entire stay macrocytosis - folate, b12, and TSH wnl 2nd to hydroxyruea ? (11) ABDIRAHMAN (obstructive sleep apnea): 2010 had sleep study by Dr Black. CPAP [id number] was recommended. She has been noncompliant for many years with this. Untreated ABDIRAHMAN likely contributing to resistant HTN. Of note - patient had severe RLS/PLM on that study. Needs Fe studies at some point. Would also recommend a repeat study as the 14cm H20 pressure setting may not be what she needs given the last study was 10 years ago. (12) DVT prophylaxis: lovenox 40mg daily Total Time Total Time Spent Total Time Spent (In Minutes): 34 minutes Total Time Includes: Examination of the Patient, Discharge Planning and Medication Reconciliation Discharge Plan Discharge Items Patient Disposition: Home - Self-Care Reason For Visit: 3RD DEGREE HB Discharge Diagnosis: 3rd degree heart block s/p pacemaker insertion Resistant hypertension Condition on Discharge: Good Goals: better blood pressure control follow up with cardiology for pacemaker check Activity: Per Instructions section Lifting: None Bathing: Keep incision dry Bathing Comment: May get incision wet in 2 days Exercise/Sports: Gradually increase as tolerated Driving/Machine Use: Resume 1 day after discharge Weightbearing: Full weightbearing Non-emergency contact: Primary Care Provider and Local Owner Operator Truck Driver Call non-emergency contact if: you have any medication questions, your symptoms worsen, your pain is not controlled and you have a fever Follow-up/Referrals: Wayne Dunn MD [Primary Care Provider] - 06/21/19 3:15 pm (Please follow up at [facility] with Dr. Dunn on ThursdayJune 20 at 3:15 pm. Please arrive for your appointment 15 minutes early. *If you are unable to keep this appointment, please call the office to reschedule at [phone]. ) Garo Saavedra MD [Physician] - (Dr. Saavedra's office will call with appointment date and time.) Diet: Carb Consistent or DM2, Heart Healthy and Low Sodium (2gm) Addtl Attending Provider Instructions: Medications: - CARVEDILOL: 25 mg twice a day, this REPLACES metoprolol - AMLODIPNINE: 10mg daily, for better blood pressure control - HYDRALAZINE: 10mg three times a day for better blood pressure control - SPIRONOLACTONE: 25mg daily in the morning for blood pressure control 3rd degree heart block causing syncope treated with permanent pacemaker, you are paced keep incision DRY for two more days, can then wash with shower Hypertension, resistant several medications started while here, better control this morning continue regimen of Carvedilol, amlodipine, hydralazine, spironolactone, prazosin follow a low sodium diet, less than 2gm a day follow up this week with Dr. Dunn's office no evidence of renal artery stenosis on imaging renin and aldosterone levels sent, results are still pending, these are hormones Sleep apnea very important that you use your CPAP, pillowcase sewer will try to help you get nasal pillow instead of mask Addtl Calculus Professor Provider Instructions: Cardiology, pacemaker DO NOT lift left arm above shoulder or reach backwards for [address] Saavedra will see you in the office in a month Pending Studies at Discharge: Yes Studies:: Renin activity, aldosterone level Stand-Alone Forms: My [facility] [employer], Smoking Cessation Medications and DC Order Prescriptions: New amlodipine 10 mg tablet 10 mg PO QAM 30 Days Qty: 30 RF: 3 hydralazine 10 mg Tablet 10 mg PO TID 30 Days Qty: 90 RF: 1 carvedilol 25 mg Tablet 25 mg PO BID 30 Days Qty: 60 RF: 3 spironolactone 25 mg Tablet 25 mg PO QAM 30 Days Qty: 30 RF: 3 Continued atorvastatin 20 mg tablet 20 mg PO QPM Qty: 90 RF: 3 prazosin 1 mg capsule 1 mg PO QPM Qty: 30 RF: 2 Probiotic (S.boulardii) 250 mg capsule 250 mg PO BID Qty: 60 RF: 0 bupropion HCl [Wellbutrin SR] 150 mg tablet sustained-release 12 hr 150 mg PO BID RF: 0 trazodone 50 mg tablet 50 mg PO HS Qty: 30 RF: 0 metformin 500 mg tablet 500 mg PO QPM RF: 0 hydroxyurea 500 mg capsule 1,000 mg PO [id number] RF: 0 aspirin 81 mg tablet,delayed release (DR/EC) 81 mg PO QAM RF: 0 ferrous sulfate [Feosol] 325 mg (65 mg iron) tablet 325 mg PO QPM RF: 0 lisinopril 40 mg tablet 40 mg PO QAM RF: 0 cholecalciferol (vitamin D3) 1,000 unit capsule 1,000 units PO QAM RF: 0 vitamin E47-rixug acid 500-400 mcg tablet 1 tab PO QAM RF: 0 Centrum Silver Women 8 mg iron-400 mcg-300 mcg tablet 1 tab PO QAM RF: 0 hydroxyurea 500 mg Capsule 1,500 mg PO WK RF: 0 olanzapine 10 mg tablet 10 mg PO DAILY RF: 0 Discontinued metoprolol succinate 100 mg tablet extended release 24 hr 150 mg PO DAILY RF: 0 Discharge Orders: Discharge Order (Routine); Ordered 06/13/19 Ordered By: Ramon Wilks Admission Data Admit Date/Time: 06/06/19 23:39 Attending Provider: Ramon Wilks Admit Provider: Richmond Manning Primary Care Provider: Wayne Dunn Other Providers: Kendell Escoto ; Zeeshan Stock Other Interventions: Discharge Summary Assessment (RN) Last Done: 06/13/19 10:32 DC Date/Time DO NOT enter until pt leaves facility: 06/13/19 11:55 Coding Level of Care Code D/C Day Management >30 mins Diagnoses Hypertension I10 Hypertension type: essential hypertension Third degree heart block I44.2 Syncope R55 Syncope type: unspecified Type 2 diabetes mellitus E11.9 Nonischemic cardiomyopathy I42.8 Nonocclusive coronary atherosclerosis of [place] coronary artery I25.10 Hyperlipidemia E78.5 Acute kidney injury superimposed on chronic kidney disease N17.9; N18.9 Depression F32.9 Primary thrombocytopenia, unspecified D69.49 ABDIRAHMAN (obstructive sleep apnea) G47.33 DVT prophylaxis Z29.9
[2019-06-14 20:45] LABS: Renin Activity 0.24 ng/mL/h (0.25-5.82)
== END 2019-06-13 11:55 | disposition home or self-care (01) | DRG 243 ==
LOC: ED 20:58 → 2S 23:39 → SUATTDRO 23:39 → 2S 06-07 00:25 → 1E 06-08 03:44 → 2E 06-10 05:40